=== PATIENT | male | born 1935 | race Caucasian/White ===

== ENCOUNTER 2017-09-12 03:01 | Emergency (ER) | payer OTHER ==
[~2017-09-12] VITALS: Ht 167.6 cm; Wt 100.7 kg
[~2017-09-12 03:01] MED LIST: ASPEC81 PO; ATOR-22 PO; BCTROWC TD; CEPH500C2 PO; CHOL100027 PO; DOXY40CA PO; LSN/20125 PO; MULT-506 PO; PRED10TA PO; RANI150T85 PO; RIFA550T2 PO; TAMS0.4C38 PO; [UNRECOGNIZED DRUG - CODE] TD
[2017-09-12 03:03] VITALS: Ht 167.6 cm; Wt 100.7 kg
[2017-09-12] MEDS ORDERED: BENZONATATE 100MG CAP PO ONE (03:30)
[2017-09-12 03:50] LABS: BASO % 0.3 %; BASO ABS # 0.02 K/uL (0-0.2); EOS ABS # 0.06 K/uL (0-0.5); HEMATOCRIT 41.7 % (42-52); HEMOGLOBIN 14.7 g/dL (14.0-18.0); IG# 0.01 K/uL (0.00-0.02); LYMPH ABS # 0.55 K/uL (1.2-3.4); MEAN CELL VOLUME 92.5 fL (80-100); MEAN CORPUSCULAR HEMOGLOBIN 32.6 pg (25-34); MEAN CORPUSCULAR HGB CONC 35.3 g/dl (32-36); MEAN PLATELET VOLUME 9.5 fL (7.4-10.4); MONO % 13.9 %; MONO ABS # 0.85 K/uL (0.11-0.59); NEUT % 75.6 %; NEUT ABS # 4.64 K/uL (1.4-6.5); PLATELET COUNT 145 K/uL (130-400); RED CELL DISTRIBUTION WIDTH SD 43.5 fL (36.4-46.3); WHITE BLOOD COUNT 6.13 K/uL (4.8-10.8)
[2017-09-12 04:02] LABS: INR 1.2 (0.9-1.1)
[2017-09-12 04:08] LABS: ALBUMIN 3.8 gm/dl (3.4-5.0); ALT/SGPT 26 U/L (12-78); AST/SGOT 17 U/L (15-37); BLOOD UREA NITROGEN 11 mg/dl (7-18); CALCIUM 8.7 mg/dl (8.5-10.1); CARBON DIOXIDE 27 mmol/L (21-32); CREATININE 1.26 mg/dl (0.60-1.40); GLUCOSE 103 mg/dl (70-99); POTASSIUM 3.7 mmol/L (3.5-5.1); SODIUM 135 mmol/L (136-145)
[2017-09-12 04:08] LABS: INFLUENZA B ANTIGEN Neg for Influ B (NEG)
[2017-09-12] MEDS ORDERED: ASPI81TA28 PO (04:12)
[2017-09-12 04:13] LABS: ALKALINE PHOSPHATASE 56 U/L (45-117); TOTAL PROTEIN 6.8 gm/dl (6.4-8.2)
[2017-09-12] MEDS ORDERED: DICY10CA12 PO (04:15)
[2017-09-12] MEDS ORDERED: MAGNESIUM SULFATE 1GM / D5W 1 GM BAG IV STA (04:16)
[2017-09-12] MEDS ORDERED: BCTROWC EXT (04:17)
--- NOTE | 2017-09-12 04:18 | EMERGENCY ROOM VISIT NOTE ---
History Report prepared by Abigail: Noemi Martinez Under the Supervision of: Dr. Lisa Sandhu D.O. First contact with patient: 03:02 Chief Complaint: ILLNESS Stated Complaint: SORETHROAT, HEADACHE, FEVER History of Present Illness The patient is an 82 year old male who presents to the Emergency Room with complaints of a worsening illness starting this morning. The patient states that he had seen his PCP in early July for an annual check up and was told he wasn't needed to be seen for a year. He reports that shortly after him and his developed a cold. He states that he cannot get his nose to stop dripping and has troubles with his sleep apnea machine because of it. The patient states that he was started on some medication for it, but it doesn't work. He states Robitussin DM helps some. The patient states that he is on Doxycycline for his rash and states that he was placed on another antibiotic for his worsening cold symptoms by the PA yesterday. He reports that he has had a dry cough and has developed a sore throat from it. He states that the PA heard something in his lungs and started him on Levaquin 750mg. He reports that they did a chest x-ray that has not been read yet. The patient states that his symptoms worsened following taking the medication. He states that he had two episodes of bowel incontinence upon standing up to use the restroom. The patient states that he came to the ED tonight because he cannot sleep due to not being able to breathe with his machine and his cough. His notes that right before she called the ambulance he had a fever of 102 that dropped to 99.5 when ALS arrived. The patient notes that he feels like he can breathe okay when he breathes through his mouth. The patient complains of a sore throat, diarrhea, head ache, and eye pain. The patient denies chest pain, visual changes , abdominal pain, vomiting, hematochezia, leg swelling, and urinary symptoms. The patient denies ever having Bronchitis or Pneumonia. The patient notes he did get a flu shot this year. The patient denies being around others who are sick, a pulmonary history, and cardiac history. Patient is a poor and very difficult historian. Source of History: patient Onset: this morning Position: other (global) Quality: other (illness) Timing: worsening Associated Symptoms: + fevers, + headache, + sorethroat, + cough, + diarrhea , No chest pain, No vomiting, No abdominal pain, No hematochezia, No urinary symptoms Note: The patient complains of rhinorrhea, bowel incontinence, and eye pain. The patient denies visual changes and leg swelling. Review of Systems See HPI for pertinent positives & negatives. A total of 10 systems reviewed and were otherwise negative. Past Medical & Surgical Medical Problems: (1) Diverticulitis Surgical Problems: (1) History of appendectomy (2) S/P colon resection Family History No pertinent family history Social History Smoking Status: Never Smoker Alcohol Use: occasionally Marital Status: Housing Status: lives with significant other Occupation Status: retired Current/Historical Medications Scheduled Aspirin (Aspirin Ec), 81 MG PO DAILY Atorvastatin (Lipitor), 20 MG PO DAILY Benzonatate (Tessalon Perles), 100 MG PO Q8 Cholecalciferol (Vitamin D 1000 Unit), 1,000 INTER.UNIT PO MWF Doxycycline (Rosacea) (Oracea), 20 MG PO BID Hctz/Lisinopril (Zestoretic 20MG/12.5MG), 1 TAB PO DAILY Hydrocortisone (Hydrocortisone), 1 APPLN TOP BID Multiple Vitamins W/ Minerals (Multivitamin Men 50+), 1 TAB PO DAILY Mupirocin (Bactroban 2% Oint), 1 APPLN EXT BID Ranitidine (Zantac), 150 MG PO BID Sulfacetamide Sodium (Acne) (Klaron), 1 APPLN TOP DAILY Tamsulosin Hcl (Flomax), 0.4 MG PO DAILY Scheduled PRN Dicyclomine Hcl (Dicyclomine Hcl), 1 CAP PO QID PRN for abd cramping/pain Ipratropium Carpio (Nasal) (Ipratropium Carpio), 2 SPRY SABAS QID PRN for rhinitis Allergies Coded Allergies: No Known Allergies (Verified , 09/12/17) Physical Exam Vital Signs Date Time Temp Pulse Resp B/P (MAP) Pulse Ox O2 Delivery O2 Flow Rate FiO2 09/12/17 06:11 37.8 65 16 142/73 98 Room Air 09/12/17 05:16 66 16 130/63 96 Room Air 09/12/17 04:00 65 20 134/70 94 09/12/17 03:38 69 09/12/17 03:03 37.8 83 16 156/85 97 Room Air Physical Exam GENERAL: alert, well appearing, well nourished, no distress, non-toxic EYE EXAM: normal conjunctiva, PERRL and EOM's grossly intact OROPHARYNX: no exudate, no erythema, lips, buccal mucosa, and tongue normal and mucous membranes are moist NECK: supple, no nuchal rigidity, no adenopathy, non-tender LUNGS: Clear to auscultation. Normal chest wall mechanics. No wheezes, rhonchi, or rales. HEART: no murmurs, S1 normal and S2 normal ABDOMEN: abdomen soft, non-tender, normo-active bowel sounds, no masses, no rebound or guarding. BACK: Back is symmetrical on inspection and there is no deformity, no midline tenderness, no CVA tenderness. SKIN: no rashes and no bruising UPPER EXTREMITIES: upper extremities are grossly normal. LOWER EXTREMITIES: No pitting edema. NEURO EXAM: Normal sensorium, cranial nerves II-XII grossly intact, normal speech, no gross weakness of arms, no gross weakness of legs. Medical Decision & Procedures ER Provider Diagnostic Interpretation: CHEST X-RAY: There was no formal radiology report on the x-ray outside of the ED. I interpreted the results of the x-ray. No cardiomegaly. No effusions. No consolidation. No wide mediastinum. No pulmonary edema. CHEST X-RAY: The results were interpreted by me. Cardiomegaly. No effusions. No wide mediastinum. No focal consolidation. No overt pulmonary edema. Laboratory Results 09/12/17 03:31 Red Blood Count 4.51, Mean Corpuscular Volume 92.5, Mean Corpuscular Hemoglobin 32.6, Mean Corpuscular Hemoglobin Concent 35.3, Mean Platelet Volume 9.5, Neutrophils (%) (Auto) 75.6, Lymphocytes (%) (Auto) 9.0, Monocytes (%) (Auto) 13.9, Eosinophils (%) (Auto) 1.0, Basophils (%) (Auto) 0.3, Neutrophils # (Auto ) 4.64, Lymphocytes # (Auto) 0.55, Monocytes # (Auto) 0.85, Eosinophils # (Auto ) 0.06, Basophils # (Auto) 0.02 09/12/17 03:31 Test 09/12/17 03:31 09/12/17 03:35 09/12/17 04:45 White Blood Count 6.13 K/uL (4.8-10.8) Red Blood Count 4.51 M/uL (4.7-6.1) Hemoglobin 14.7 g/dL (14.0-18.0) Hematocrit 41.7 % (42-52) Mean Corpuscular Volume 92.5 fL (80-100) Mean Corpuscular Hemoglobin 32.6 pg (25-34) Mean Corpuscular Hemoglobin Concent 35.3 g/dl (32-36) Platelet Count 145 K/uL (130-400) Mean Platelet Volume 9.5 fL (7.4-10.4) Neutrophils (%) (Auto) 75.6 % Lymphocytes (%) (Auto) 9.0 % Monocytes (%) (Auto) 13.9 % Eosinophils (%) (Auto) 1.0 % Basophils (%) (Auto) 0.3 % Neutrophils # (Auto) 4.64 K/uL (1.4-6.5) Lymphocytes # (Auto) 0.55 K/uL (1.2-3.4) Monocytes # (Auto) 0.85 K/uL (0.11-0.59) Eosinophils # (Auto) 0.06 K/uL (0-0.5) Basophils # (Auto) 0.02 K/uL (0-0.2) RDW Standard Deviation 43.5 fL (36.4-46.3) RDW Coefficient of Variation 13.0 % (11.5-14.5) Immature Granulocyte % (Auto) 0.2 % Immature Granulocyte # (Auto) 0.01 K/uL (0.00-0.02) Prothrombin Time 12.3 SECONDS (9.0-12.0) Prothromb Time International Ratio 1.2 (0.9-1.1) Anion Gap 7.0 mmol/L (3-11) Est Creatinine Clear Calc Drug Dose 51.1 ml/min Estimated GFR () 61.6 Estimated GFR (Non- 53.1 BUN/Creatinine Ratio 8.8 (10-20) Calcium Level 8.7 mg/dl (8.5-10.1) Magnesium Level 1.6 mg/dl (1.8-2.4) Total Bilirubin 1.1 mg/dl (0.2-1) Aspartate Amino Transf (AST/SGOT) 17 U/L (15-37) Alanine Aminotransferase (ALT/SGPT) 26 U/L (12-78) Alkaline Phosphatase 56 U/L (45-117) Troponin I < 0.015 ng/ml (0-0.045) Pro-B-Type Natriuretic Peptide 150 pg/ml (0-1800) Total Protein 6.8 gm/dl (6.4-8.2) Albumin 3.8 gm/dl (3.4-5.0) Globulin 3.0 gm/dl (2.5-4.0) Albumin/Globulin Ratio 1.3 (0.9-2) Influenza Type A Antigen POS for Influ A (NEG) Influenza Type B Antigen Neg for Influ B (NEG) Urine Color YELLOW Urine Appearance CLEAR (CLEAR) Urine pH 5.5 (4.5-7.5) Urine Specific [place] 1.013 (1.000-1.030) Urine Protein NEG (NEG) Urine Glucose (UA) NEG (NEG) Urine Ketones NEG (NEG) Urine Occult Blood 1+ (NEG) Urine Nitrite NEG (NEG) Urine Bilirubin NEG (NEG) Urine Urobilinogen NEG (NEG) Urine Leukocyte Esterase NEG (NEG) Urine WBC (Auto) 0 /hpf (0-5) Urine RBC (Auto) 0-4 /hpf (0-4) Urine Hyaline Casts (Auto) 1-5 /lpf (0-5) Urine Epithelial Cells (Auto) 0-5 /lpf (0-5) Urine Bacteria (Auto) NEG (NEG) Laboratory results per my review. Medications Administered Medications (Trade) Dose Ordered Sig/Latoya Route Start Time Stop Time Status Last Admin Dose Admin Benzonatate (Tessalon Perles Cap) 100 mg NOW ONCE PO 09/12/17 03:30 09/12/17 03:31 DC 09/12/17 03:45 100 MG Magnesium Sulfate (Magnesium Sulfate) 1 gm NOW STAT IV 09/12/17 04:16 09/12/17 04:17 DC 09/12/17 04:32 1 GM ECG Per My Interpretation Indication: other (cough) Rate (beats per minute): 69 Rhythm: sinus rhythm Findings: no acute ischemic change, no ectopy, other (normal axis, normal intervals) ED Course 0311: The patient was evaluated in room A9B. A complete history and physical exam was performed. 0330: Ordered Benzonatate 100 mg PO. 0334: I updated the patient on his x-ray results that I read since there was no formal read. 0416: Ordered Magnesium Sulfate 1 gm IV. 0548: Upon reevaluation, the patient is feeling better. He is steady on his feet and not lightheaded. He and his are comfortable with him going home. I discussed the findings and the treatment plan with the patient. He verbalizes agreement and understanding. The patient was discharged home. Medical Decision Differential diagnosis: Etiologies such as viral syndrome, otitis, pharyngitis, pneumonia, influenza, meningitis, urinary tract infection, sepsis, bacteremia, as well as others were entertained. Patient well-appearing here, stable vital signs throughout, nontoxic appearance. Patient's labs reassuring. Outpatient chest x-ray performed yesterday at time they saw provider and had antibiotics initiated had not yet been read by radiology but on my read was negative for any infiltrate or effusion. Repeat chest x-ray done here as a precaution given fever earlier tonight, also read as negative. Urine otherwise negative, patient with no other GI or symptoms, abdominal exam soft and nontender. Given positive flow and lack of other specific complaints or physical exam findings, I feel this likely explains but the fever as well as the increased cough and rhinorrhea. Patient states cough is improved following administration of Tessalon Perles. Patient never had any hypoxia or increased work of breathing. I do not suspect the cough and fever are related to an occult pneumonia, infectious effusion, pericarditis/myocarditis, bacteremia/sepsis, deep space infection, meningitis/encephalitis, or deep space infection. Patient monitored here for several hours as a precaution, magnesium repleted as well and this was discussed with patient and family. Advised repeat check by patient's family doctor. Discussed cessation of antibiotic that was started yesterday given likely viral etiology of cough and fever, as well as risks associated with that antibiotic in an elderly patient with significant comorbidities. Patient with no prior history of asthma or COPD, no other pulmonary pathology. Patient and family verbalized understanding of all results and discussion a bedside, all questions were answered at bedside, patient was tolerating p.o. and ambulating with a steady gait at time of discharge. Patient well-appearing at discharge and agreeable with plan. Medication Reconcilliation Current Medication List: was personally reviewed by me Blood Pressure Screening Patient's blood pressure: Elevated blood pressure Blood pressure disposition: Referred to PCP Impression Primary Impression: Influenza A Additional Impressions: Cough Rhinorrhea Scribe Attestation The scribe's documentation has been prepared under my direction and personally reviewed by me in its entirety. I confirm that the note above accurately reflects all work, treatment, procedures, and medical decision making performed by me. Departure Information Dispostion Home / Self-Care Prescriptions Benzonatate (Tessalon Perles) 100 Mg Cap 100 MG PO Q8 for Cough, #30 CAP Prov: Lisa Sandhu, DO 09/12/17 Referrals Garth Schulz M.D. (PCP) Forms HOME CARE DOCUMENTATION FORM, IMPORTANT VISIT INFORMATION, WORK / SCHOOL INSTRUCTIONS Patient Instructions My [facility] Additional Instructions Please stop taking the levofloxacin. Please drink plenty of water. You may use the tessalon perles as needed. Please call and follow-up with your family doctor to recheck your condition. Please use tylenol or ibuprofen as needed for fevers. Please avoid any strenuous activity or heavy lifting. If you have any worsening cough, notice blood in your sputum, develop diarrhea, persistent fevers, trouble breathing, chest pain, or you have any other new concerns, please return to the emergency room. Problem Qualifiers
[2017-09-12] MEDS ORDERED: MULT-1056 PO (04:22)
[2017-09-12] MEDS ORDERED: IPRA0.06 NAE (04:24)
[2017-09-12] MEDS ORDERED: HYDCR25 TOP (04:25)
[2017-09-12] MEDS ORDERED: [UNRECOGNIZED DRUG - CODE] TOP (04:26)
[2017-09-12] MEDS ORDERED: BENZ100C84 PO (06:00)
[2017-09-12 06:11] VITALS: BP 142/73; PULSE 65; TEMP 37.8; O2SAT 98
--- NOTE | 2017-09-12 06:59 | DIAGNOSTIC IMAGING REPORT ---
CHEST 2 VIEWS ROUTINE CLINICAL HISTORY: cough, congestion, fever COMPARISON STUDY: No previous studies for comparison. FINDINGS: The heart is mildly enlarged. There is no failure. There is no focal pulmonary consolidation. There are no pleural effusions.[ IMPRESSION: No active disease in the chest. Electronically signed by: Fernando Edwards M.D. 09/12/2017 6:58 AM Dictated Date/Time: 09/12/2017 6:58 AM
== END 2017-09-12 06:11 | disposition home or self-care (01) ==
LOC: C.EDA 03:01
DX: J10.1 Influenza due to other identified influenza virus with other respiratory manifestations (principal); R05 Cough; J34.89 Other specified disorders of nose and nasal sinuses; K57.92 Diverticulitis of intestine, part unspecified, without perforation or abscess without bleeding; Z79.82 Long term (current) use of aspirin; Z79.899 Other long term (current) drug therapy

== ENCOUNTER 2020-11-06 12:31 | Observation (INO) ==
--- NOTE | 2020-11-06 13:39 | Emergency Department Note ---
Impression & Plan Constipation ED Provider Note INFORMANT: Patient ED PROVIDER(S): Rafy Slade MD CHIEF COMPLAINT: Constipation PLAN: Disposition: Admitted Condition: Good Outpatient prescription management: none Referral: None MEDICAL DECISION MAKING: Patient presented emergency room complaining of constipation. Rectal examination did not reveal any significant fecal impaction. He underwent CT imaging due to complaints of the pain and concerns about other pathology. He was found to have significant urinary retention and hydronephrosis. He was also noted to have significant amount of stool in the colon. He had a Lemos catheter placed. Blood work was obtained. He also had a soapsuds enema. The patient had almost 2000 L of urine. His urinalysis was negative. His renal function and chemistries were unremarkable. The patient was reassessed and was feeling better. His personal care facility was contacted by case management. Myself and nursing had concerns about the patient's ability to manage his catheter and his current issue. The personal care facility felt that he could not be cared for there given the situation. Case management recommended inpatient admission and further management. Consultation was placed with Dr. Snell. The patient was evaluated in the ER for further management. Triage Nursing notes reviewed and agree them. Vital Signs: reviewed and remarkable for no significant abnormalities Differential diagnosis: Functional constipation, impaction, obstruction, volvulus, metabolic abnormality, infection, neurologic, as well as other pathologies. Diagnostics interpreted by me: ECG: none Cardiac Monitoring: None Imaging studies: CT scan of the abdomen pelvis reveals moderate stool in the colon. Enlarged prostate, urinary retention and hydronephrosis. I refer you to the EMR for further details. HPI: The patient is a 85 year old male who presents to the Emergency Room with complaints of constipation. This started a week ago and is persisting. The patient also notes the following associated symptoms, lower abdominal fullness. The patient has tried a stool softener for relieving factors. Current pain is rated as 2/10. Pt denies LOC, headache, fevers, chills, diaphoresis, visual changes, neck pain, chest pain, breathing difficulties, nausea, vomiting, back pain, melena, hematochezia, urinary symptoms, numbness, weakness, lymphadenopathy, rash, or other complaints. ROS: See above HPI for pertinent positives & negatives. A total of 10 systems reviewed and were otherwise negative. PAST MEDICAL HISTORY:See Below , dementia PAST SURGICAL HISTORY:See Below,colon resection FAMILY HISTORY:See Below SOCIAL HISTORY:See Below, retired HOME MEDICATIONS:See Below ALLERGIES:See Below VITALS:See Below PHYSICAL EXAMINATION: GENERAL: Awake, alert, well-appearing, in no distress HENT: Normocephalic, atraumatic. Oropharynx unremarkable. EYES: Normal conjunctiva. Sclera non-icteric. NECK: Inspection normal. Non-tender. Supple. No nuchal rigidity. FROM. No masses. RESPIRATORY: Clear to auscultation. No wheezes. No rales. Normal respiratory effort. CARDIAC: Normal rate. Normal rhythm. No murmurs. No rubs. Extremities warm and well perfused. Pulses equal. No JVD. GI: Soft, non-distended. Minor LLQ tenderness to palpation. No rebound or guarding. No masses. RECTAL: Brown stool. No impaction noted to 5cm. MUSCULOSKELETAL: Atraumatic. Chest examination reveals no tenderness. The back is symmetrical on inspection without obvious abnormality. There is no CVA tenderness to palpation. No joint edema. LOWER EXTREMITIES: Calves are equal size bilaterally and non-tender. +1 edema. No discoloration. NEURO: Normal sensorium. No sensory or motor deficits noted. SKIN: No rash or jaundice noted. Rafy Slade MD Past Med/Surg History Medical History Diverticulitis Surgical History History of appendectomy S/P colon resection Social History Smoking Status: Former smoker Feels Safe at Home: Yes Allergies Allergies Allergy/AdvReac Type Severity Reaction Status Date / Time No Known Allergies Allergy Mild Verified 11/06/20 14:33 Home Meds Home Medications Medication Instructions Recorded Confirmed atorvastatin 20 mg PO QAM 11/27/19 11/06/20 lisinopril 20 mg PO QAM 11/27/19 11/06/20 tamsulosin 0.4 mg PO QAM 11/27/19 11/06/20 Triamcinolone 1%/Lubriderm 1 applic TOPICAL BID 10/20/20 11/06/20 acetaminophen 650 mg PO Q6 PRN MDD 3 10/20/20 11/06/20 cholecalciferol (vitamin D3) 25 mcg PO 3XWK 10/20/20 11/06/20 [Vitamin D3] cyanocobalamin (vitamin B-12) 1,000 mcg PO QAM 10/20/20 11/06/20 [Vitamin B-12] doxycycline hyclate 100 mg PO QAM 10/20/20 11/06/20 furosemide 40 mg PO QAM 10/20/20 11/06/20 lorazepam 0.5 mg PO DAILY PRN 10/20/20 11/06/20 quetiapine 50 mg PO BID PRN 10/20/20 11/06/20 vitamin A 10,000 unit PO QAM 10/20/20 11/06/20 vitamin A and D 1 applic TOPICAL BID PRN 10/20/20 11/06/20 zinc sulfate 220 mg PO QAM 10/20/20 11/06/20 Results & Data (ED) Vital Signs Vital Signs - 24 hr 11/06/20 12:44 11/06/20 14:50 11/06/20 17:41 Temperature 36.8 C Temperature Source Oral Oral Pulse Rate 68 Pulse Rate [Right Finger] 70 62 Pulse Rhythm Regular Pulse Rhythm [Right Finger] Regular Regular Pulse Strength Normal Pulse Strength [Right Finger] Normal Normal Respiratory Rate 18 20 18 Respiratory Effort / Characteristics Non-Labored Spontaneous Non-Labored Spontaneous Non-Labored Spontaneous Respiratory Depth Normal Normal Normal Respiratory Pattern Regular Regular Regular Blood Pressure 132/78 Blood Pressure [Right Arm] 135/73 141/76 H Blood Pressure Mean 96 Blood Pressure Mean [Right Arm] 93 97 Blood Pressure Position Sitting Pulse Oximetry 97 99 98 Oxygen Delivery Method Room Air Room Air Room Air Sepsis Recent Fever Within 48 Hours No Sepsis New/Unexplained Change in Mental Status N/A Sepsis Action Taken by Nursing No Action Required Laboratory Data Result diagrams: 11/06/20 16:13 11/06/20 16:13 Lab Results 11/06/20 11/06/20 11/06/20 Range/Units 16:12 16:13 16:13 WBC 6.98 (4.8-10.8) K/uL RBC 4.47 L (4.7-6.1) M/uL Hgb 14.5 (14.0-18.0) g/dL Hct 42.2 (42-52) % MCV 94.4 (80-100) fL MCH 32.4 (25-34) pg MCHC 34.4 (32-36) g/dL RDW Std Deviation 45.8 (36.4-46.3) fL RDW Coeff of Mohit 13.2 (11.5-14.5) % Plt Count 169 (130-400) K/uL MPV 10.9 H (7.4-10.4) fL Immature Gran % (Auto) 0.1 % Neut % (Auto) 66.7 % Lymph % (Auto) 24.8 % [place] % (Auto) 6.7 % Eos % (Auto) 1.4 % Baso % (Auto) 0.3 % Neut # (Auto) 4.65 (1.4-6.5) K/uL Lymph # (Auto) 1.73 (1.2-3.4) K/uL [place] # (Auto) 0.47 (0.11-0.59) K/uL Eos # (Auto) 0.10 (0-0.5) K/uL Baso # (Auto) 0.02 (0-0.2) K/uL Immature Gran # (Auto) 0.01 (0.00-0.02) K/uL Sodium 139 (136-145) mmol/L Potassium 4.2 (3.5-5.1) mmol/L Chloride 105 (98-107) mmol/L Carbon Dioxide 32 (21-32) mmol/L Anion Gap 2.0 L (3-11) BUN 21 H (7-18) mg/dl Creatinine 0.90 (0.6-1.4) mg/dl Est Cr Clr Drug Dosing 57.9 ml/min Est GFR ( Amer) 90.6 Est GFR (Non-Af Amer) 78.2 BUN/Creatinine Ratio 23.4 H (10-20) Glucose 95 (70-99) mg/dl Calcium 9.2 (8.5-10.1) mg/dl Total Bilirubin 0.7 (0.2-1) mg/dl AST 36 (15-37) U/L ALT 49 (12-78) U/L Alkaline Phosphatase 79 (45-117) U/L Total Protein 7.4 (6.4-8.2) gm/dl Albumin 4.3 (3.4-5.0) gm/dl Globulin 3.1 (2.5-4.0) gm/dl Albumin/Globulin Ratio 1.4 (0.9-2) Specimen Hemolysis Urine Color Yellow Urine Appearance Clear (Clear) Urine pH 5.5 (4.5-7.5) Ur Specific [place] 1.008 (1.000-1.030) Urine Protein Negative (Negative) Urine Glucose (UA) Negative (Negative) Urine Ketones Negative (Negative) Urine Blood Negative (Negative) Urine Nitrite Negative (Negative) Urine Bilirubin Negative (Negative) Urine Urobilinogen Negative (Negative) Ur Leukocyte Esterase Negative (Negative) COVID-19 Eval Order 11/06/20 Range/Units 17:49 WBC (4.8-10.8) K/uL RBC (4.7-6.1) M/uL Hgb (14.0-18.0) g/dL Hct (42-52) % MCV (80-100) fL MCH (25-34) pg MCHC (32-36) g/dL RDW Std Deviation (36.4-46.3) fL RDW Coeff of Mohit (11.5-14.5) % Plt Count (130-400) K/uL MPV (7.4-10.4) fL Immature Gran % (Auto) % Neut % (Auto) % Lymph % (Auto) % [place] % (Auto) % Eos % (Auto) % Baso % (Auto) % Neut # (Auto) (1.4-6.5) K/uL Lymph # (Auto) (1.2-3.4) K/uL [place] # (Auto) (0.11-0.59) K/uL Eos # (Auto) (0-0.5) K/uL Baso # (Auto) (0-0.2) K/uL Immature Gran # (Auto) (0.00-0.02) K/uL Sodium (136-145) mmol/L Potassium (3.5-5.1) mmol/L Chloride (98-107) mmol/L Carbon Dioxide (21-32) mmol/L Anion Gap (3-11) BUN (7-18) mg/dl Creatinine (0.6-1.4) mg/dl Est Cr Clr Drug Dosing ml/min Est GFR ( Amer) Est GFR (Non-Af Amer) BUN/Creatinine Ratio (10-20) Glucose (70-99) mg/dl Calcium (8.5-10.1) mg/dl Total Bilirubin (0.2-1) mg/dl AST (15-37) U/L ALT (12-78) U/L Alkaline Phosphatase (45-117) U/L Total Protein (6.4-8.2) gm/dl Albumin (3.4-5.0) gm/dl Globulin (2.5-4.0) gm/dl Albumin/Globulin Ratio (0.9-2) Specimen Hemolysis Urine Color Urine Appearance (Clear) Urine pH (4.5-7.5) Ur Specific [place] (1.000-1.030) Urine Protein (Negative) Urine Glucose (UA) (Negative) Urine Ketones (Negative) Urine Blood (Negative) Urine Nitrite (Negative) Urine Bilirubin (Negative) Urine Urobilinogen (Negative) Ur Leukocyte Esterase (Negative) COVID-19 Eval Order CovFluRsv at [facility] Imaging Data Radiologist's Impression: Abdomen/Pelvis CT 11/06/20 13:[address] WITHOUT CONTRAST CT DOSE: 955.81 mGycm HISTORY: constipation, lower abdominal pain. TECHNIQUE: Multiaxial CT images of the abdomen and pelvis were performed without contrast. A dose lowering technique was utilized adhering to the principles of ALARA. COMPARISON STUDY: Abdomen and pelvis CT 09/12/2007. FINDINGS: Mild chronic interstitial thickening at the lung bases. No pneumoperitoneum. No pneumatosis. No suspicious lytic are blastic osseous lesions. Subtle nodular contour to the liver suggestive of mild cirrhosis. Prior cholecystectomy. The unenhanced spleen, adrenal glands, and pancreas are unremarkable. No retroperitoneal lymphadenopathy. Normal caliber abdominal aorta. The prostate gland is enlarged measuring 6.2 cm in diameter. There are small fat-containing bilateral inguinal hernias. Moderate well-formed stool seen within the colon. Evidence for prior sigmoid anastomosis. Suboptimal evaluation for bowel pathology due to the lack of intravenous and oral contrast. However, there is no definite bowel wall thickening or obstruction. Colonic diverticulosis. No evidence for acute diverticulitis. There is a 3 mm stone within the lower pole the right kidney. No left renal calculi. No ureteral calculi. Moderate to severe bladder distention. There is also mild bilateral hydronephrosis. This is likely due to the suspected bladder outlet obstruction. The bladder outlet obstruction is likely due to the enlarged prostate gland. IMPRESSION: 1. Moderate to severe bladder distention. There is also mild bilateral hydronephrosis. This is likely secondary to the enlarged prostate gland resulting in bladder outlet obstruction. Lemos catheterization recommended for decompression. 2. No bowel wall thickening or obstruction. 3. Right-sided nephrolithiasis. 4. Prior cholecystectomy. 5. Mild cirrhosis. 6. Colonic diverticulosis. No evidence for acute diverticulitis. ACT 112: Negative or not required by law. Electronically signed by: Cecil Zhao M.D. 11/06/2020 2:37 PM Discharge Plan Visit Data Chief Complaint: Constipation Stated Complaint: Constipation ED Provider: Rafy Slade Discharge Problem: Constipation Forms Stand Alone Forms: [place] [facility] Prescriptions Prescriptions: No Action atorvastatin 20 mg tablet 20 mg PO QAM RF: 0 lisinopril 20 mg tablet 20 mg PO QAM RF: 0 tamsulosin 0.4 mg capsule 0.4 mg PO QAM RF: 0 furosemide 40 mg tablet 40 mg PO QAM RF: 0 doxycycline hyclate 100 mg capsule 100 mg PO QAM RF: 0 cyanocobalamin (vitamin B-12) [Vitamin B-12] 1,000 mcg Tablet 1,000 mcg PO QAM RF: 0 vitamin A 10,000 unit Capsule 10,000 unit PO QAM RF: 0 cholecalciferol (vitamin D3) [Vitamin D3] 25 mcg (1,000 unit) Capsule 25 mcg PO 3XWK RF: 0 acetaminophen 325 mg Tablet 650 mg PO Q6 MDD 3 PRN (Reason: Fever Or Pain) RF: 0 lorazepam 0.5 mg tablet 0.5 mg PO DAILY PRN (Reason: Anxiety) RF: 0 zinc sulfate 220 mg Capsule 220 mg PO QAM RF: 0 quetiapine 50 mg Tablet 50 mg PO BID PRN (Reason: Anxiety) RF: 0 vitamin A and D Ointment 1 applic TOPICAL BID PRN (Reason: ulcer) RF: 0 Triamcinolone 1%/Lubriderm 1 applic topical BID RF: 0
--- NOTE | 2020-11-06 14:39 | CT Scan Report ---
ABDOMEN AND PELVIS CT WITHOUT CONTRAST CT DOSE: 955.81 mGycm HISTORY: constipation, lower abdominal pain. TECHNIQUE: Multiaxial CT images of the abdomen and pelvis were performed without contrast. A dose lo wering technique was utilized adhering to the principles of ALARA. COMPARISON STUDY: Abdomen and pelvis CT 09/12/2007. FINDINGS: Mild chronic interstitial thickening at the lung bases. No pneumoperitoneum. No pneumatosis . No suspicious lytic are blastic osseous lesions. Subtle nodular contour to the liver suggestive of mild cirrhosis. Prior cholecystectomy. The unenhanced spleen, adrenal glands, and pancreas are unrema rkable. No retroperitoneal lymphadenopathy. Normal caliber abdominal aorta. The prostate gland is enl arged measuring 6.2 cm in diameter. There are small fat-containing bilateral inguinal hernias. Modera te well-formed stool seen within the colon. Evidence for prior sigmoid anastomosis. Suboptimal evalua tion for bowel pathology due to the lack of intravenous and oral contrast. However, there is no defin ite bowel wall thickening or obstruction. Colonic diverticulosis. No evidence for acute diverticuliti s. There is a 3 mm stone within the lower pole the right kidney. No left renal calculi. No ureteral c alculi. Moderate to severe bladder distention. There is also mild bilateral hydronephrosis. This is l ikely due to the suspected bladder outlet obstruction. The bladder outlet obstruction is likely due t o the enlarged prostate gland. IMPRESSION: 1. Moderate to severe bladder distention. There is also mild bilateral hydronephrosis. This is likely secondary to the enlarged prostate gland resulting in bladder outlet obstruction. Lemos catheterizat ion recommended for decompression. 2. No bowel wall thickening or obstruction. 3. Right-sided nephrolithiasis. 4. Prior cholecystectomy. 5. Mild cirrhosis. 6. Colonic diverticulosis. No evidence for acute diverticulitis. ACT 112: Negative or not required by law. Electronically signed by: Cecil Zaho M.D. 11/06/2020 2:37 PM
[2020-11-06 16:26] LABS: Basophils # (auto) 0.02 K/uL (0-0.2); Basophils % (auto) 0.3 %; Eosinophils % (auto) 1.4 %; Hematocrit (blood only) 42.2 % (42-52); Hemoglobin 14.5 g/dL (14.0-18.0); Immature Granulocytes # (auto) 0.01 K/uL (0.00-0.02); Immature Granulocytes % (auto) 0.1 %; Lymphocytes # (auto) 1.73 K/uL (1.2-3.4); Lymphocytes % (auto) 24.8 %; Mean Corpuscular Hemoglobin 32.4 pg (25-34); Mean Corpuscular Hgb Conc 34.4 g/dL (32-36); Mean Corpuscular Volume 94.4 fL (80-100); Mean Platelet Volume 10.9 fL (7.4-10.4); Monocytes # (auto) 0.47 K/uL (0.11-0.59); Monocytes % (auto) 6.7 %; Neutrophils # (auto) 4.65 K/uL (1.4-6.5); Neutrophils % (auto) 66.7 %; Platelet Count 169 K/uL (130-400); RDW Coefficient of Variation 13.2 % (11.5-14.5); RDW Standard Deviation 45.8 fL (36.4-46.3); Red Blood Count 4.47 M/uL (4.7-6.1); White Blood Count 6.98 K/uL (4.8-10.8)
[2020-11-06 16:29] LABS: Appearance Urine Clear (Clear); Bilirubin Urine Negative (Negative); Blood Urine Negative (Negative); Color Urine Yellow; Glucose Urine UA Negative (Negative); Ketones Urine Negative (Negative); Leukocyte Esterase Urine Negative (Negative); Nitrite Urine Negative (Negative); Protein Urine Negative (Negative); Specific Gravity Urine 1.008 (1.000-1.030); Urobilinogen Urine Negative (Negative); pH Urine 5.5 (4.5-7.5)
[2020-11-06 16:53] LABS: Albumin Globulin Ratio 1.4 (0.9-2); Albumin Level 4.3 gm/dl (3.4-5.0); BUN Creatinine Ratio 23.4 (10-20); Bilirubin,Total 0.7 mg/dl (0.2-1); Calcium 9.2 mg/dl (8.5-10.1); Creatinine Clr Calc Pharmacy 57.9 ml/min; Est GFR (African American) 90.6; Est GFR (Non-African American) 78.2; Globulin 3.1 gm/dl (2.5-4.0); Potassium 4.2 mmol/L (3.5-5.1); Total Protein 7.4 gm/dl (6.4-8.2)
--- NOTE | 2020-11-06 18:15 | History & Physical Report ---
Date of Service November 06, 2020 Assessment & Plan Admission and Anticipated Discharge Date Admission Date: 85 yo m w/ pMHx. of constipation, s/p colon resection, appendectomy, diverticulitis, AV malformation of the colon and dementia presents from a personal half-way with concerns of LBM 5 days prior and abdominal pain - admit for observation to med/surg floor Constipation, chronic, LBM [address] a/p w/ finding of: Moderate well formed stool in colon. No bowel wall thickening or obstruction. Colonic diverticulosis. No evidence for acute diverticulitis. - Miralax 2 doses tonight and TID going forward BPH, chronic, obstructive with rapid dieresis of 1L after Lemos placed abdominal pain and LUTS prior to arrival CT a/p w/ finding of moderate to severe bladder distention, mild bilateral hydronephrosis - continue Lemos catheter - continue Tamsulosin Leg swelling/redness, consistent with venous stasis Hx. of bilateral lymphadema - FAITH's and SCD's Mild cirrhosis on CT a/p nl LFT's - may require further outpatient evaluation Dementia, unclear baseline CT head 06/28/20: No acute intracranial hemorrhage, midline shift, intracranial mass, hydrocephalus, territorial ischemia or abnormal extra-axial collection. Age-related involutional changes. Coarse calcifications of the falx cerebri. Patchy white matter hypodensities suggest chronic microvascular ischemic disease. - Ativan and Quetiapine available for agitation HTN - continue Lisinopril, and Furosemide Dyslipidemia - continue Atorvastatin Code: full Diet: regular DVT: SCD's History of Present Illness Chief Complaint: abdominal pain Primary Care Provider: [facility] Timoteo Ivory is here for abdominal pain. He is coming from a personal half-way "[facility]". His last bowel movement was 5 days prior and was complaining of abdominal pain. He pointed to his suprapubic area when describing the pain along with some discomfort in his left lower quadrant. He also noted "spurting" of urine. He has a history of dementia and was not able to offer much in regard to a history or symptoms. Patient brought up son named Amador although there is no contact information available Called son Garth who was in the chart and lives in [place], he was not available but his was, although she was unclear on the patient's medical conditions or any recent changes, expecting a call from Garth morataya Called [facility] multiple times with no answer Note from [facility] 05/05/2020 medical conditions include: BPH w/ obstruction, dyslipidemia, AV malformation of the colon, HTN w/ CKD III, GERD, Lymphedema bilateral extremity, senile and vascular dementia ED course: CT scan Lemos catheter placed Allergies Allergy/AdvReac Type Severity Reaction Status Date / Time No Known Allergies Allergy Mild Verified 11/06/20 14:33 Home Medications Medication Instructions Recorded Confirmed Type atorvastatin 20 mg PO QAM 11/27/19 11/06/20 History lisinopril 20 mg PO QAM 11/27/19 11/06/20 History tamsulosin 0.4 mg PO QAM 11/27/19 11/06/20 History Triamcinolone 1%/Lubriderm 1 applic TOPICAL BID 10/20/20 11/06/20 History acetaminophen 650 mg PO Q6 PRN MDD 3 10/20/20 11/06/20 History cholecalciferol (vitamin D3) 25 mcg PO 3XWK 10/20/20 11/06/20 History [Vitamin D3] cyanocobalamin (vitamin B-12) 1,000 mcg PO QAM 10/20/20 11/06/20 History [Vitamin B-12] doxycycline hyclate 100 mg PO QAM 10/20/20 11/06/20 History furosemide 40 mg PO QAM 10/20/20 11/06/20 History lorazepam 0.5 mg PO DAILY PRN 10/20/20 11/06/20 History quetiapine 50 mg PO BID PRN 10/20/20 11/06/20 History vitamin A 10,000 unit PO QAM 10/20/20 11/06/20 History vitamin A and D 1 applic TOPICAL BID PRN 10/20/20 11/06/20 History zinc sulfate 220 mg PO QAM 10/20/20 11/06/20 History Past Med/Surg History Medical History Diverticulitis Surgical History History of appendectomy S/P colon resection Social History Smoking Status: Former smoker Hx Alcohol Use: No Hx Substance Use: No Preferred Language: Mongolian Communication Ability: Effective Jackspooler Required: No Beliefs That Will Affect Care: None Current Living Situation: Spouse Feels Safe at Home: Yes Safety Concerns: Feels Safe At This Time Review of Systems Review of Systems: Constitutional: denies fevers, chills, nuasea, vomiting, diaphoresis Head: denies trauma Cardiac: denies chest pain Pulm.: denies cough : denies dysuria Physical Exam Constitutional: + well hydrated and cooperative; no acute distress Eyes: PERRL, conjunctivae normal, anicteric sclerae ENMT: external ear and nose normal, oropharynx normal Neck: normal visual inspection Respiratory: normal respiratory effort, lungs clear to auscultation Cardiovascular: Rate/Rhythm: regular rate and regular rhythm Heart Sounds: no murmur Gastrointestinal (Abdomen): normal bowel sounds, soft, nontender, no hepatosplenomegaly Musculoskeletal: no cyanosis or clubbing, extremities motor strength 5/5 Skin: - erythema along with significant swelling of the lower extremity bilaterally L>R. - no ulceration no drainage - swelling does no cross the sock line - no tenderness Neurologic: no focal motor deficits Psychiatric: Orientation: alert; + not oriented x 3 Eye Contact: + fair eye contact Speech: + loud speech Thought Process: + tangential thought process, + flight of ideas and + confabulations Results & Data Results & Data ([facility]) Vital Signs (Past 12 Hours) Vital Signs Temp Pulse Pulse Resp BP BP Pulse Ox 11/06/20 17:41 62 18 141/76 H 98 11/06/20 14:50 70 20 135/73 99 11/06/20 12:44 36.8 C 68 18 132/78 97 CBC Results Results Complete Blood Count Results: RBC 4.47 M/uL (4.7-6.1) L 11/06/20 WBC 6.98 K/uL (4.8-10.8) 11/06/20 Hgb 14.5 g/dL (14.0-18.0) 11/06/20 Hct 42.2 % (42-52) 11/06/20 Plt Count 169 K/uL (130-400) 11/06/20 Chemistry (BMP) Results BMP Results: Sodium 139 mmol/L (136-145) 11/06/20 Potassium 4.2 mmol/L (3.5-5.1) 11/06/20 Chloride 105 mmol/L (98-107) 11/06/20 BUN 21 mg/dl (7-18) H 11/06/20 Creatinine 0.90 mg/dl (0.6-1.4) 11/06/20 Glucose 95 mg/dl (70-99) 11/06/20 Resident Activity Tracking Resident Involvement: Resident Care Provided Care Provided: Adult [facility]
[2020-11-06 18:41] LABS: Influenza A virus by PCR Negative (Neg); Influenza B virus by PCR Negative (Neg); RSV by PCR Negative (Neg); SARS CoV2 RNA(COVID-19) InHosp NEGATIVE (Negative)
[2020-11-06] MEDS ORDERED: POLYETHYLENE (MIRALAX) 17 GM PACK PO STA (21:01)
[2020-11-06] MEDS ORDERED: LUBRIDERM TOP SCH (21:01)
[2020-11-06] MEDS ORDERED: LORazepam 0.5 MG TAB PO PRN (21:01)
[2020-11-06] MEDS ORDERED: VITAMIN A AND D TOP PRN (21:01)
[2020-11-06] MEDS ORDERED: TRIAMCINOLONE TOP SCH (21:01)
[2020-11-06] MEDS ORDERED: ACETAMINOPHEN 325 MG TAB PO PRN ×2 (21:01)
[2020-11-07] MEDS: QUEtiapine FUMARATE 25 MG TABLET PO PRN ×2 (02:26→21:37)
[2020-11-07 06:49] LABS: Basophils # (auto) 0.03 K/uL (0-0.2); Basophils % (auto) 0.3 %; Eosinophils # (auto) 0.11 K/uL (0-0.5); Eosinophils % (auto) 1.2 %; Hematocrit (blood only) 40.5 % (42-52); Hemoglobin 13.7 g/dL (14.0-18.0); Immature Granulocytes # (auto) 0.01 K/uL (0.00-0.02); Immature Granulocytes % (auto) 0.1 %; Lymphocytes # (auto) 1.55 K/uL (1.2-3.4); Lymphocytes % (auto) 17.1 %; Mean Corpuscular Hemoglobin 31.6 pg (25-34); Mean Corpuscular Hgb Conc 33.8 g/dL (32-36); Mean Corpuscular Volume 93.5 fL (80-100); Mean Platelet Volume 10.1 fL (7.4-10.4); Monocytes % (auto) 8.8 %; Neutrophils # (auto) 6.58 K/uL (1.4-6.5); Neutrophils % (auto) 72.5 %; Platelet Count 175 K/uL (130-400); RDW Standard Deviation 45.1 fL (36.4-46.3); Red Blood Count 4.33 M/uL (4.7-6.1); White Blood Count 9.08 K/uL (4.8-10.8)
[2020-11-07 07:06] LABS: Calcium 9.1 mg/dl (8.5-10.1); Est GFR (African American) 95.6; Est GFR (Non-African American) 82.5; Potassium 3.7 mmol/L (3.5-5.1)
[2020-11-07] MEDS: POLYETHYLENE (MIRALAX) 17 GM PACK PO SCH ×2 (09:08→15:22)
[2020-11-07] MEDS: lisinopril 20 MG TAB PO SCH (09:08)
[2020-11-07] MEDS: TAMSULOSIN HCL 0.4 MG CAP PO SCH (09:08)
[2020-11-07] MEDS: ATORVASTATIN 20 MG TAB PO SCH (09:08)
[2020-11-07] MEDS: FUROSEMIDE 40 MG TAB PO SCH (09:08)
--- NOTE | 2020-11-07 15:35 | Hospitalist Progress Note ---
Date of Service November 07, 2020 Assessment & Plan (1) Constipation: Patient had a soapsuds enema and multiple doses of laxatives and now has had a bowel movement. Okay to continue to monitor (2) Urinary retention: I suspect this was the main cause of the patient's abdominal pain, had a large volume diuresis after Crockett catheter inserted. For now, will need to continue catheter. I did discuss with case management, patient will likely need to be discharged with his place, should have outpatient neurology follow-up and voiding trial in their office. Case management is currently working on discharge planning is the patient currently lives in a personal residential and I suspect he will not be able to manage the catheter on his own (3) HTN (hypertension): Continue lisinopril and furosemide (4) Dyslipidemia: Continue atorvastatin Admission and Anticipated Discharge Date Admission Date: November 06, 2020 Subjective Late entry. Patient seen earlier today. He was awake and alert, very talkative and I suspect there may have been a degree of confusion. He did not appear to be in any distress. I did ask about his abdominal pain he tells me that this is resolved. Per nursing, the patient had not had a bowel movement at that time but later had a large volume bowel movement and his laxatives were discontinued. Physical Exam Constitutional: WD/WN, vitals as above Respiratory: normal respiratory effort, lungs clear to auscultation Auscultation: lungs clear to auscultation bilaterally Cardiovascular: RRR, no murmur, no edema Rate/Rhythm: regular rate Gastrointestinal (Abdomen): normal bowel sounds, soft, nontender, no hepatosplenomegaly Inspection/Auscultation: abdomen normal to inspection Genitourinary: crockett, normal yellow urine Results & Data Results & Data ([facility]) Vital Signs (Past 12 Hours) Vital Signs Temp Pulse Resp BP Pulse Ox 11/07/20 14:57 36.7 C 61 16 112/63 96 11/07/20 07:12 36.6 C 61 18 149/78 H 98 PG Care Time/CCT Total # of Minutes Spent Total Time Spent with Patient: Total time spent is greater than 50% in coordination of care (as documented) at patient's floor/unit and/or counseling patient: Coding Level of Care Code 51651 Subseq Hosp Care Lvl 2 Diagnoses Constipation K59.00 Urinary retention R33.9 HTN (hypertension) I10 Dyslipidemia E78.5
[2020-11-08] MEDS: lisinopril 20 MG TAB PO SCH (08:54)
[2020-11-08] MEDS: TAMSULOSIN HCL 0.4 MG CAP PO SCH (08:54)
[2020-11-08] MEDS: ATORVASTATIN 20 MG TAB PO SCH (08:54)
[2020-11-08] MEDS: FUROSEMIDE 40 MG TAB PO SCH (09:36)
--- NOTE | 2020-11-08 10:15 | Discharge Summary ---
Date of Service November 08, 2020 Admission HPI Per Admitting Provider Timoteo Ivory is here for abdominal pain. He is coming from a personal snf "[facility]". His last bowel movement was 5 days prior and was complaining of abdominal pain. He pointed to his suprapubic area when describing the pain along with some discomfort in his left lower quadrant. He also noted "spurting" of urine. He has a history of dementia and was not able to offer much in regard to a history or symptoms. Patient brought up son annamaria English although there is no contact information available Called son Garth who was in the chart and lives in [place], he was not available but his was, although she was unclear on the patient's medical conditions or any recent changes, expecting a call from Garth morataya Called [facility] multiple times with no answer Note from [facility] 05/05/2020 medical conditions include: BPH w/ obstruction, dyslipidemia, AV malformation of the colon, HTN w/ CKD III, GERD, Lymphedema bilateral extremity, senile and vascular dementia ED course: CT scan Lemos catheter placed Admission Exam Per Admitting Provider Constitutional: + well hydrated and cooperative; no acute distress Eyes: PERRL, conjunctivae normal, anicteric sclerae ENMT: external ear and nose normal, oropharynx normal Neck: normal visual inspection Respiratory: normal respiratory effort, lungs clear to auscultation Cardiovascular: Rate/Rhythm: regular rate and regular rhythm Heart Sounds: no murmur Gastrointestinal (Abdomen): normal bowel sounds, soft, nontender, no hepatosplenomegaly Musculoskeletal: no cyanosis or clubbing, extremities motor strength 5/5 Skin: - erythema along with significant swelling of the lower extremity bilaterally L>R. - no ulceration no drainage - swelling does no cross the sock line - no tenderness Neurologic: no focal motor deficits Psychiatric: Orientation: alert; + not oriented x 3 Eye Contact: + fair eye contact Speech: + loud speech Thought Process: + tangential thought process, + flight of ideas and + confabulations Principal Diagnosis 1. Acute urinary retention, likely secondary to BPH 2. Constipation, now resolved 3. Hypertension 4. Dyslipidemia 5. Mild senile dementia Discharge Exam Constitutional WD/WN, vitals as above Respiratory normal respiratory effort, lungs clear to auscultation Auscultation: lungs clear to auscultation bilaterally Cardiovascular RRR, no murmur, no edema Rate/Rhythm: regular rate Gastrointestinal (Abdomen) normal bowel sounds, soft, nontender, no hepatosplenomegaly Inspection/Auscultation: abdomen normal to inspection Genitourinary Lemos in place, draining clear yellow urine Discharge Data Allergies Allergy/AdvReac Type Severity Reaction Status Date / Time No Known Allergies Allergy Mild Verified 11/06/20 14:33 Ordered Studies 11/06/20 13:28 CT abd pelvis wo con Stat Hospital Course (1) Constipation: Patient had a soapsuds enema and multiple doses of laxatives and now has had a bowel movement. Patient's pain was relieved after insertion of the Lemos. He will be placed on Colace p.o.twice daily for bowel health. (2) Urinary retention: Patient initially presented with abdominal pain. CT scan showed very dilated bladder with bilateral hydronephrosis. Lemos was inserted emergency room with large volume diuresis. Patient symptoms seem to resolve after this. Patient's Lemos is remained in place. He does have a history of BPH and is on F chandra with this. Plan will be to continue the Lemos as an outpatient. He should be fitted with a leg bag. Patient will need short-term follow-up with urology after voiding trial in for definitive treatment. Patient may have cognitive issues and will likely need help emptying the Lemos periodically. (3) HTN (hypertension): Continue lisinopril and furosemide (4) Dyslipidemia: Continue atorvastatin Total Time Total Time Spent Total Time Spent (In Minutes): 28 Discharge Plan Discharge Items Patient Disposition: Trans Resident Long-Term Care Reason For Visit: CONSTIPATION Discharge Diagnosis: 1. Acute urinary retention, now with Lemos in place 2. Constipation 3. hypertension 4. Dyslipidemia 5. Possible mild senile dementia Activity: Resume your previous activity Non-emergency contact: Primary Care Provider and Urologist Call non-emergency contact if: you have any medication questions, your symptoms worsen and you have a fever Follow-up/Referrals: Graham, [Primary Care Provider] - (Patient will need outpatient urology evaluation for voiding trial and more definitive treatment for urinary retention.) Diet: Regular Addtl Attending Provider Instructions: None Pending Studies at Discharge: No Stand-Alone Forms: [facility] Skilled Items Patient informed of condition?: Yes DNR: No Discharge Level of Care: Other Communicable Disease: No Discharge Prognosis: Stable Lines: None Urinary Catheter: Yes Medications and DC Order Prescriptions: New docusate sodium [Colace] 100 mg capsule 100 mg PO BID Qty: 30 RF: 0 Continued atorvastatin 20 mg tablet 20 mg PO QAM RF: 0 lisinopril 20 mg tablet 20 mg PO QAM RF: 0 tamsulosin 0.4 mg capsule 0.4 mg PO QAM RF: 0 furosemide 40 mg tablet 40 mg PO QAM RF: 0 cyanocobalamin (vitamin B-12) [Vitamin B-12] 1,000 mcg Tablet 1,000 mcg PO QAM RF: 0 vitamin A 10,000 unit Capsule 10,000 unit PO QAM RF: 0 cholecalciferol (vitamin D3) [Vitamin D3] 25 mcg (1,000 unit) Capsule 25 mcg PO 3XWK RF: 0 acetaminophen 325 mg Tablet 650 mg PO Q6 MDD 3 PRN (Reason: Fever Or Pain) RF: 0 lorazepam 0.5 mg tablet 0.5 mg PO DAILY PRN (Reason: Anxiety) RF: 0 zinc sulfate 220 mg Capsule 220 mg PO QAM RF: 0 quetiapine 50 mg Tablet 50 mg PO BID PRN (Reason: Anxiety) RF: 0 vitamin A and D Ointment 1 applic TOPICAL BID PRN (Reason: ulcer) RF: 0 Triamcinolone 1%/Lubriderm 1 applic topical BID RF: 0 Discontinued doxycycline hyclate 100 mg capsule 100 mg PO QAM RF: 0 Discharge Orders: Discharge Order (Routine); Ordered 11/08/20 Ordered By: Adam Dennis Admission Data Admit Date/Time: 11/06/20 18:26 Attending Provider: Adam Dennis Admit Provider: Demetrio Flores Primary Care Provider: Graham, Other Providers: [facility] Coding Level of Care Code 40129 OBS Care - Discharge Diagnoses Constipation K59.00 Urinary retention R33.9 HTN (hypertension) I10 Dyslipidemia E78.5
== END 2020-11-08 12:10 | disposition home or self-care (01) ==
LOC: 3N 12:31 → ED 12:31 → SUATTDRO 18:26 → 3N 20:49

== ENCOUNTER 2021-06-22 08:11 | Inpatient (IN) ==
--- NOTE | 2021-06-22 08:37 | Emergency Department Note ---
History of Present Illness General Chief complaint: Fall Stated complaint: Fall w/ right hip pain Time Seen by Provider: 06/22/21 08:13 Source: EMS and RN notes reviewed Mode of arrival: EMS Limitations: altered mental status History of Present Illness Provider complaint: Unwitnessed fall, altered mental status This is an 86-year-old male presents emergency department via EMS after an unwitnessed fall at the assisted living facility where he resides. I did contact staff at there and was told that they had rounded on the patient's between 7 and 710 this morning and patient was seated in a chair. They walked b y approximately 15 to 20 minutes later noted the patient was on the floor. They noted abrasions to his right leg. They were concerned for recurrent head trauma as they saw blood on his heater as well as a hole in the wall. They also state they saw an abrasion noted to the right elbow. They state they have noted a cognitive decline in the patient over the course of the last month. They state typically he could ambulate independently and perform basic ADLs without difficulty. Patient here yesterday following a fall as well, no evidence of significant trauma, diagnosed with cellulitis and return to the facility. Pt seen during a time of high acuity and national emergency pandemic while w earing PPE. Home Medications Medication Instructions Recorded Confirmed Type atorvastatin 20 mg tablet 20 mg PO QAM 11/27/19 06/22/21 History lisinopril 20 mg tablet 20 mg PO QAM 11/27/19 06/22/21 History tamsulosin 0.4 mg capsule 0.4 mg PO QAM 11/27/19 06/22/21 History acetaminophen 325 mg tablet 650 mg PO Q6 PRN MDD 3g 10/20/20 06/22/21 History cholecalciferol (vitamin D3) 25 25 mcg PO 3XWK 10/20/20 06/22/21 History mcg (1,000 unit) capsule (Vitamin D3) cyanocobalamin (vitamin B-12) 1,000 mcg PO QAM 10/20/20 06/22/21 History 1,000 mcg tablet (Vitamin B-12) furosemide 40 mg tablet 40 mg PO QAM 10/20/20 06/22/21 History lorazepam 0.5 mg tablet 0.5 mg PO DAILY PRN 10/20/20 06/22/21 History quetiapine 50 mg tablet 50 mg PO BID PRN 10/20/20 06/22/21 History vitamin A 10,000 unit capsule 10,000 unit PO QAM 10/20/20 06/22/21 History polyethylene glycol 3350 17 gram 17 g PO DAILY 03/18/21 06/22/21 History oral powder packet (Miralax) Triam 0.1%Cr/Lubriderm Lo 1 applic TOPICAL BID 05/17/21 06/22/21 History zinc sulfate 220 mg capsule 220 mg PO QAM 05/17/21 06/22/21 History cephalexin 500 mg capsule 500 mg PO Q6H 7 Days #28 cap 06/21/21 06/22/21 Rx docusate sodium 100 mg capsule 100 mg PO BID 06/21/21 06/22/21 History (Colace) haloperidol 0.5 mg tablet 0.5 mg PO DAILY 06/21/21 06/22/21 History haloperidol 2 mg tablet 2 mg PO DAILY 06/21/21 06/22/21 History Allergies Allergy/AdvReac Type Severity Reaction Status Date / Time No Known Allergies Allergy Mild Verified 05/17/21 17:19 Past Med/Surg History Medical History Diverticulitis Hypertensive kidney disease Rhinitis Surgical History History of appendectomy S/P colon resection Social History Smoking Status: Unknown if ever smoked Second Hand Exposure: No; Do You Dip or Chew Tobacco: No; Tobacco Cessation Education Requested by Patient: No Hx Alcohol Use: No Hx Substance Use: No Preferred Language: Monegasque Communication Ability: Impaired Communication Ability Comment: patient confused, follows some commands Vest Busheler Required: No Beliefs That Will Affect Care: None Current Living Situation: Personal Care Facility Feels Safe at Home: Yes Assistive Devices: Walker Assistive Devices Comment: patient cognitively impaired, unable to verbalize Review of Systems A total of 10 systems reviewed and were otherwise negative All systems reviewed & are unremarkable except as noted in HPI & below Physical Exam Vital Signs Vital Signs - 24 hr 06/22/21 12:00 06/22/21 13:00 06/22/21 13:30 Pulse Rate 91 H 90 Pulse Rate [Apical] 101 H Respiratory Rate 16 20 17 Respiratory Effort / Characteristics Non-Labored Respiratory Depth Normal Blood Pressure 134/82 Blood Pressure [Left Arm] 153/86 H Blood Pressure Mean 99 Blood Pressure Mean [Left Arm] 108 Pulse Oximetry 96 99 Oxygen Delivery Method Room Air Room Air 06/22/21 14:00 Pulse Rate 89 Pulse Rate [Apical] Respiratory Rate 18 Respiratory Effort / Characteristics Respiratory Depth Blood Pressure Blood Pressure [Left Arm] Blood Pressure Mean Blood Pressure Mean [Left Arm] Pulse Oximetry 99 Oxygen Delivery Method Room Air GENERAL: Somnolent but arousable, well nourished, no distress, non-toxic HEAD: abrasion noted to vertex, no active bleeding, no surrounding cellulitis, head otherwise atraumatic, no evidence of facial trauma EYE EXAM: normal conjunctiva, PERRL and EOM's grossly intact OROPHARYNX: no exudate, no erythema, lips, buccal mucosa, and tongue normal and mucous membranes are dry NECK: supple, no nuchal rigidity, no adenopathy, non-tender LUNGS: Clear to auscultation. Normal chest wall mechanics, no w/r/r HEART: no murmurs, S1 normal and S2 normal ABDOMEN: abdomen soft, non-tender, normo-active bowel sounds, no masses, no rebound or guarding. BACK: Back is symmetrical on inspection and there is no deformity, no midline tenderness, no CVA tenderness. SKIN: no rashes and no bruising, no petechiae UPPER EXTREMITIES: upper extremities are grossly normal. FROM, nml pulses b/l. Contusion noted to left elbow seen yesterday. New area of abrasion and evolving small contusion to the right elbow also. No apparent distress or pain with palpation over the bony prominences. LOWER EXTREMITIES: 2+ pitting edema. nml pulses b/l. Areas of erythema and previously demarcated lines noted to b/l distal LE, new areas of erythema noted right lateral LE with abrasions noted just inferior to knee and proximal RUE just inferior to hip, compartments soft, no joint effusions. NEURO EXAM: Confused, easily agitated, cranial nerves II-XII grossly intact, normal speech although gives inappropriate answers, moves extremities spontaneously but will not follow commands for formal neuro testing, no obvious ataxia to limbs. Localizes and withdraws to painful stimuli. Course Course 1350: Patient still is not been seen by PT and OT, however after additional phone calls by case management, there are no available beds for a [facility] facility or a higher level of care. Due to concern for a safe discharge plan given the patient's recurrent falls and the current level of care in assisted living, case discussed with [facility] hospitalist team. Administered Medications Atorvastatin Calcium (Atorvastatin 20 Mg Tab) 20 mg PO [facility] Stop: 07/23/21 08:59 Last Admin: 06/23/21 08:53 Dose: 20 mg Documented by: [id number] Cyanocobalamin (Cyanocobalamin 500 Mcg Tablet (Vitamin B-12)) 1,000 mcg PO [facility] Stop: 07/23/21 08:59 Last Admin: 06/23/21 08:54 Dose: 1,000 mcg Documented by: [id number] Docusate Sodium (Docusate Sodium 100 Mg Cap) 100 mg PO BID [facility] Stop: 07/22/21 20:59 Last Admin: 06/23/21 08:55 Dose: 100 mg Documented by: [id number] Admin: 06/22/21 21:39 Dose: 100 mg Documented by: [id number] Enoxaparin Sodium (Enoxaparin 100 Mg/1ml Syr) 90 mg SQ Q12H [facility] Stop: 07/23/21 06:59 Last Admin: 06/23/21 08:47 Dose: 90 mg Documented by: [id number] Furosemide (Furosemide 40 Mg Tab) 40 mg PO [facility] Stop: 07/23/21 08:59 Last Admin: 06/23/21 08:56 Dose: 40 mg Documented by: [id number] Ceftriaxone Sodium 2,000 mg/ (Dextrose) 70 mls @ 100 mls/hr IV Q24H [facility]; Protocol Stop: 06/30/21 08:59 Last Admin: 06/23/21 09:44 Dose: 100 mls/hr Documented by: [id number] Lisinopril (Lisinopril 20 Mg Tab) 20 mg PO [facility] Stop: 07/23/21 08:59 Last Admin: 06/23/21 08:56 Dose: 20 mg Documented by: [id number] Pantoprazole Sodium (Pantoprazole 40 Mg Tab) 40 mg PO DAILY [facility] Stop: 07/22/21 18:59 Last Admin: 06/23/21 08:57 Dose: 40 mg Documented by: [id number] Admin: 06/22/21 21:52 Dose: 40 mg Documented by: [id number] Polyethylene Glycol (Polyethylene (Miralax) 17 Gm Pack) 17 gm PO DAILY [facility] Stop: 07/23/21 08:59 Last Admin: 06/23/21 08:58 Dose: 17 gm Documented by: [id number] Tamsulosin HCl (Tamsulosin Hcl 0.4 Mg Cap) 0.4 mg PO QAM [facility] Stop: 07/23/21 08:59 Last Admin: 06/23/21 08:58 Dose: 0.4 mg Documented by: [id number] Vitamin D (Cholecalciferol 1,000 Units 25 Mcg Tab) 1,000 units PO MoWeFr@0900 [facility] Stop: 07/23/21 08:59 Last Admin: 06/23/21 08:54 Dose: 1,000 units Documented by: [id number] Zinc Sulfate (Zinc Sulfate 220 Mg Capsule) [facility] Stop: 07/23/21 08:59 Last Admin: 06/23/21 08:58 Dose: 220 mg Documented by: [id number] Discontinued Medications Enoxaparin Sodium (Enoxaparin 100 Mg/1ml Syr) 90 mg SQ NOW ONE Stop: 06/22/21 18:46 Last Admin: 06/22/21 21:41 Dose: 90 mg Documented by: [id number] Ceftriaxone Sodium (Rocephin) 2,000 mg in 70 mls @ 140 mls/hr IV NOW STA Stop: 06/22/21 09:59 Last Infusion: 06/22/21 10:40 Dose: 0 mls/hr Documented by: [id number] Admin: 06/22/21 10:09 Dose: 140 mls/hr Documented by: [id number] Medical Decision Making Differential Diagnosis Differential diagnoses include major intracranial, cervical, spinal, thoracic, abdominal, pelvic and neurologic injury. Fracture, contusion, sprain, strain, laceration, abrasions included as well. Medical Records Attestation: I reviewed the patient's medical records. Home Medications Current Medication List: was personally reviewed by me Laboratory Data Attestation: I reviewed the patient's lab results. Result diagrams: 06/23/21 07:41 06/23/21 07:41 Lab Results 06/22/21 06/22/21 06/22/21 Range/Units 08:58 08:58 08:58 WBC 12.89 H (4.8-10.8) K/uL RBC 4.23 L (4.7-6.1) M/uL Hgb 13.4 L (14.0-18.0) g/dL Hct 40.8 L (42-52) % MCV 96.5 (80-100) fL MCH 31.7 (25-34) pg MCHC 32.8 (32-36) g/dL RDW Std Deviation 47.4 H (36.4-46.3) fL RDW Coeff of Mohit 13.6 (11.5-14.5) % Plt Count 197 (130-400) K/uL MPV 10.0 (7.4-10.4) fL Immature Gran % (Auto) 0.4 % Neut % (Auto) 85.3 % Lymph % (Auto) 6.4 % [place] % (Auto) 6.3 % Eos % (Auto) 1.3 % Baso % (Auto) 0.3 % Neut # (Auto) 10.99 H (1.4-6.5) K/uL Lymph # (Auto) 0.83 L (1.2-3.4) K/uL [place] # (Auto) 0.81 H (0.11-0.59) K/uL Eos # (Auto) 0.17 (0-0.5) K/uL Baso # (Auto) 0.04 (0-0.2) K/uL Immature Gran # (Auto) 0.05 H (0.00-0.02) K/uL Sodium 138 (136-145) mmol/L Potassium 3.9 (3.5-5.1) mmol/L Chloride 104 (98-107) mmol/L Carbon Dioxide 27 (21-32) mmol/L Anion Gap 7.0 (3-11) BUN 22 H (7-18) mg/dl Creatinine 0.99 (0.6-1.4) mg/dl Est Cr Clr Drug Dosing Not Reportable Est GFR ( Amer) 80.2 ml/min Est GFR (Non-Af Amer) 69.2 ml/min BUN/Creatinine Ratio 21.8 H (10-20) Glucose 99 (70-99) mg/dl Calcium 9.1 (8.5-10.1) mg/dl Total Bilirubin 1.3 H (0.2-1) mg/dl AST 49 H (15-37) U/L ALT 33 (12-78) Alkaline Phosphatase 82 (45-117) U/L Total Creatine Kinase 1394 H (39-308) U/L Total Protein 6.7 (6.4-8.2) gm/dl Albumin 3.4 (3.4-5.0) gm/dl Globulin 3.3 (2.5-4.0) gm/dl Albumin/Globulin Ratio 1.0 (0.9-2) Imaging Data Radiologist's Impression: Cervical Spine CT 06/22/21 08:42 CT SCAN OF THE CERVICAL SPINE CLINICAL HISTORY: Fall. COMPARISON STUDY: CT of the cervical spine dated 06/21/2021. TECHNIQUE: CT scan of the cervical spine is performed from the skull base to the upper thoracic spine. Images are reviewed in the axial, sagittal, and coronal planes. IV contrast was not administered for this examination. A dose lowering technique was utilized adhering to the principles of ALARA. CT DOSE: 459.97 mGycm FINDINGS: Skeletal structures: The skeletal structures are osteopenic. There is no evidence of fracture or subluxation involving the cervical spine. Vertebral body height is maintained. There is minimal anterolisthesis at C4-C5 and C5-C6. Alignment is otherwise preserved. Anterior osteophytes are seen throughout. The re is straightening of the cervical lordosis. The odontoid process and lateral masses are intact. The atlantoaxial articulation is preserved noting productive degenerative change. The spinous processes appear intact. There is moderate multilevel cervical spondylosis. Uncovertebral and facet arthropathy contribute to neural foraminal narrowing at several levels. Intervertebral discs: There is mild degenerative disc space narrowing, greatest at C6-C7. Central canal: A posterior disc osteophyte complex at C6-C7 may contribute to mild acquired compromise of the central canal. Soft tissues: The prevertebral and paraspinous soft tissues are within normal limits. Calvarium: The visualized calvarium at the skull base appears intact. Brain parenchyma: Partially visualized brain parenchyma at the skull base is within normal limits noting age-related involutional change. Sinuses and mastoids: Trace mucosal thickening is noted in the sphenoid sinuses. There is a right mastoid effusion. The left mastoid air cells are well pneumatized. Lung apices: Clear as visualized. IMPRESSION: 1. There is no evidence of fracture or subluxation involving the cervical spine. 2. Osteopenia and spondylotic change as above. ACT 112: Negative or not required by law. Electronically signed by: Silver Roebrt M.D. 06/22/2021 9:28 AM Chest X-Ray 06/22/21 08:42 XR chest 1V portable CLINICAL HISTORY: trauma TECHNIQUE: Single frontal radiograph of the chest was obtained. Comparison: Comparison is made to chest one view 06/21/2021 FINDINGS: No lines and tubes are seen. The cardiomediastinal silhouette is normal. Lungs a re underinflated but clear. No evidence of pleural effusion or pneumothorax. IMPRESSION: No acute chest disease. ACT 112: Negative or not required by law. Electronically signed by: Mani Mills M.D. 06/22/2021 10:[address] 06/22/21 08:42 CT head/brain wo con CLINICAL HISTORY: 86 years-old Male with trauma. Acute head trauma TECHNIQUE: Multiple axial CT images of the head were obtained without contrast. A dose lowering technique was utilized adhering to the principles of ALARA. CT DOSE: 1577.26 mGycm COMPARISON: Head CT 06/21/2021. FINDINGS: No acute intracranial hemorrhage, midline shift, intracranial mass, hydrocephalus, territorial ischemia or abnormal extra-axial collection. Age- related involutional changes with white matter hypodensities suggestive of chronic microvascular ischemic disease. Calcifications of the falx cerebri. Cerebral vascular calcifications. The calvarium is intact. Trace right mastoid effusion. Left mastoid air cells are clear. Mild mucosal thickening of the maxillary sinuses. Prior bilateral lens repair. Small contusion the left parietal scalp. IMPRESSION: No acute intracranial abnormality or calvarial fracture. ACT 112: Negative or not required by law. The above report was generated using voice recognition software. It may contain grammatical, syntax or spelling errors. Electronically signed by: Ron Palma M.D. 06/22/2021 9:23 AM Hip/Pelvis X-Ray 06/22/21 08:42 XR hip RT 2V w pelvis HISTORY: 86 years-old Male fall, trauma acute pelvic pain status post fall COMPARISON: Pelvis radiograph 06/21/2021 TECHNIQUE: AP view of the pelvis with 2 views of the right hip FINDINGS: Mild osteoarthritis of the bilateral hips. No acute fracture, dislocation or avascular necrosis. Mild soft tissue prominence lateral to the right hip. No opaque foreign body. IMPRESSION: No acute fracture. ACT 112: Negative or not required by law. The above report was generated using voice recognition software. It may contain grammatical, syntax or spelling errors. Electronically signed by: Ron Palma M.D. 06/22/2021 10:06 AM ECG Data Attestation: I personally reviewed and interpreted this ECG as follows: Indication: + weakness Rate (beats per minute): 92 Rhythm: + normal sinus ECG Intervals/blocks: + Normal QRS and + Normal QT ECG [place]: + Normal ECG ST segments: + Nonspecific ST abnormalities Additional Comments: Significant baseline artifact MDM Narrative This is an elderly male sent in after an unwitnessed fall for the second day in a row from a local assisted living facility. According to staff there they had noticed a decline in the patient over the course of the last month. Patient evaluated yesterday after an unwitnessed fall, no significant trauma noted, patient diagnosed with cellulitis and return to the facility. Facility does not have any options to upgrade the patient's level of care to prevent any additional falls. Case discussed with therapeutic case manager here in the department. Patient was given additional antibiotics as a precaution since he was started on them yesterday for likely cellulitis of the lower extremities. Leukocytosis today is improving. Patient afebrile hemodynamically stable throughout. We did attempt to obtain PT and OT consult to help facilitate placement however there are no local availabilities. Case discussed with hospitalist for additional inpatient management pending placement into a higher level of care. An order was placed for continuous cardiac monitoring. The monitor shows a rate of _80__ with _normal sinus__ rhythm. Impression & Plan CHI (closed head injury), Cellulitis, Abrasion, Fall, Contusion Discharge Plan Visit Data Chief Complaint: Fall Stated Complaint: Fall w/ right hip pain ED Provider: Lisa Sandhu Discharge Problem: CHI (closed head injury), Cellulitis, Abrasion, Fall, Contusion Patient Disposition: Admitted As Inpatient Discharge Instructions Interventions: ED Discharge Assessment Last Done: 06/22/21 18:24 Discharge Problem: CHI (closed head injury) Qualifiers: Encounter type: initial encounter Qualified Code(s): S09.90XA - Unspecified injury of head, initial encounter Cellulitis Qualifiers: Site of cellulitis: extremity Site of cellulitis of extremity: lower extremity Laterality: unspecified laterality Qualified Code(s): L03.119 - Cellulitis of unspecified part of limb Fall Qualifiers: Encounter type: initial encounter Qualified Code(s): W19.XXXA - Unspecified fall, initial encounter Contusion Qualifiers: Encounter type: initial encounter Contusion area: elbow Laterality: unspecified laterality Qualified Code(s): S50.00XA - Contusion of unspecified elbow, initial encounter
[2021-06-22 09:19] LABS: Basophils # (auto) 0.04 K/uL (0-0.2); Basophils % (auto) 0.3 %; Eosinophils # (auto) 0.17 K/uL (0-0.5); Eosinophils % (auto) 1.3 %; Hematocrit (blood only) 40.8 % (42-52); Hemoglobin 13.4 g/dL (14.0-18.0); Immature Granulocytes # (auto) 0.05 K/uL (0.00-0.02); Immature Granulocytes % (auto) 0.4 %; Lymphocytes # (auto) 0.83 K/uL (1.2-3.4); Lymphocytes % (auto) 6.4 %; Mean Corpuscular Hemoglobin 31.7 pg (25-34); Mean Corpuscular Hgb Conc 32.8 g/dL (32-36); Mean Corpuscular Volume 96.5 fL (80-100); Monocytes # (auto) 0.81 K/uL (0.11-0.59); Monocytes % (auto) 6.3 %; Neutrophils # (auto) 10.99 K/uL (1.4-6.5); Neutrophils % (auto) 85.3 %; Platelet Count 197 K/uL (130-400); RDW Coefficient of Variation 13.6 % (11.5-14.5); RDW Standard Deviation 47.4 fL (36.4-46.3); Red Blood Count 4.23 M/uL (4.7-6.1); White Blood Count 12.89 K/uL (4.8-10.8)
--- NOTE | 2021-06-22 09:25 | CT Scan Report ---
CT head/brain wo con CLINICAL HISTORY: 86 years-old Male with trauma. Acute head trauma TECHNIQUE: Multiple axial CT images of the head were obtained without contrast. A dose lowering tech nique was utilized adhering to the principles of ALARA. CT DOSE: 1577.26 mGycm COMPARISON: Head CT 06/21/2021. FINDINGS: No acute intracranial hemorrhage, midline shift, intracranial mass, hydrocephalus, territorial ischem ia or abnormal extra-axial collection. Age-related involutional changes with white matter hypodensiti es suggestive of chronic microvascular ischemic disease. Calcifications of the falx cerebri. Cerebral vascular calcifications. The calvarium is intact. Trace right mastoid effusion. Left mastoid air cells are clear. Mild mucosa l thickening of the maxillary sinuses. Prior bilateral lens repair. Small contusion the left parietal scalp. IMPRESSION: No acute intracranial abnormality or calvarial fracture. ACT 112: Negative or not required by law. The above report was generated using voice recognition software. It may contain grammatical, syntax o r spelling errors. Electronically signed by: Ron Palma M.D. 06/22/2021 9:23 AM
--- NOTE | 2021-06-22 09:29 | CT Scan Report ---
CT SCAN OF THE CERVICAL SPINE CLINICAL HISTORY: Fall. COMPARISON STUDY: CT of the cervical spine dated 06/21/2021. TECHNIQUE: CT scan of the cervical spine is performed from the skull base to the upper thoracic spine . Images are reviewed in the axial, sagittal, and coronal planes. IV contrast was not administered fo r this examination. A dose lowering technique was utilized adhering to the principles of ALARA. CT DOSE: 459.97 mGycm FINDINGS: Skeletal structures: The skeletal structures are osteopenic. There is no evidence of fracture or subl uxation involving the cervical spine. Vertebral body height is maintained. There is minimal anterolis thesis at C4-C5 and C5-C6. Alignment is otherwise preserved. Anterior osteophytes are seen throughout . There is straightening of the cervical lordosis. The odontoid process and lateral masses are intact . The atlantoaxial articulation is preserved noting productive degenerative change. The spinous proce sses appear intact. There is moderate multilevel cervical spondylosis. Uncovertebral and facet arthro javon contribute to neural foraminal narrowing at several levels. Intervertebral discs: There is mild degenerative disc space narrowing, greatest at C6-C7. Central canal: A posterior disc osteophyte complex at C6-C7 may contribute to mild acquired compromis e of the central canal. Soft tissues: The prevertebral and paraspinous soft tissues are within normal limits. Calvarium: The visualized calvarium at the skull base appears intact. Brain parenchyma: Partially visualized brain parenchyma at the skull base is within normal limits not ing age-related involutional change. Sinuses and mastoids: Trace mucosal thickening is noted in the sphenoid sinuses. There is a right mas toid effusion. The left mastoid air cells are well pneumatized. Lung apices: Clear as visualized. IMPRESSION: 1. There is no evidence of fracture or subluxation involving the cervical spine. 2. Osteopenia and spondylotic change as above. ACT 112: Negative or not required by law. Electronically signed by: Silver Robert M.D. 06/22/2021 9:28 AM
[2021-06-22] MEDS ORDERED: cefTRIAXone SODIUM 2,000 MG/70 ML BAG IV STA (09:30)
[2021-06-22 09:42] LABS: Alanine Aminotransferase 33 (12-78); Albumin Level 3.4 gm/dl (3.4-5.0); Aspartate Aminotransferase 49 U/L (15-37); BUN Creatinine Ratio 21.8 (10-20); Blood Urea Nitrogen 22 mg/dl (7-18); Calcium 9.1 mg/dl (8.5-10.1); Carbon Dioxide 27 mmol/L (21-32); Chloride 104 mmol/L (98-107); Est GFR (African American) 80.2 ml/min; Est GFR (Non-African American) 69.2 ml/min; Glucose 99 mg/dl (70-99); Potassium 3.9 mmol/L (3.5-5.1); Sodium 138 mmol/L (136-145)
[2021-06-22 09:45] LABS: Alkaline Phosphatase 82 U/L (45-117); Bilirubin,Total 1.3 mg/dl (0.2-1); Globulin 3.3 gm/dl (2.5-4.0); Total Protein 6.7 gm/dl (6.4-8.2)
--- NOTE | 2021-06-22 10:07 | XRay Report ---
XR hip RT 2V w pelvis HISTORY: 86 years-old Male fall, trauma acute pelvic pain status post fall COMPARISON: Pelvis radiograph 06/21/2021 TECHNIQUE: AP view of the pelvis with 2 views of the right hip FINDINGS: Mild osteoarthritis of the bilateral hips. No acute fracture, dislocation or avascular necrosis. Mild soft tissue prominence lateral to the right hip. No opaque foreign body. IMPRESSION: No acute fracture. ACT 112: Negative or not required by law. The above report was generated using voice recognition software. It may contain grammatical, syntax o r spelling errors. Electronically signed by: Ron Palma M.D. 06/22/2021 10:06 AM
--- NOTE | 2021-06-22 10:19 | XRay Report ---
XR chest 1V portable CLINICAL HISTORY: trauma TECHNIQUE: Single frontal radiograph of the chest was obtained. Comparison: Comparison is made to chest one view 06/21/2021 FINDINGS: No lines and tubes are seen. The cardiomediastinal silhouette is normal. Lungs are underinflated but clear. No evidence of pleural effusion or pneumothorax. IMPRESSION: No acute chest disease. ACT 112: Negative or not required by law. Electronically signed by: Mani Mills M.D. 06/22/2021 10:18 AM
--- NOTE | 2021-06-22 15:17 | History & Physical Report ---
Date of Service June 22, 2021 Assessment & Plan (1) AMS (altered mental status): (2) DVT (deep venous thrombosis): (3) Fall: (4) Cellulitis: (5) Abrasion: (6) BPH loc w urin obs/LUTS: (7) HTN (hypertension): (8) Dementia: (9) Total bilirubin, elevated: Plan: AMS/Fall: -Per nurse at [facility] pt was started on Haloperidol 2.5mg qhs 3 weeks ago for agitation and combativeness - CT head: no acute finding -he is also taking quetiapine 50mg BID prn and lorazepam 0.5mg qhs prn ---- will hold both -his AMS could be 2/2 meds SE -BCx from yesterday (prior ER visit) growing G+ cocci - for now will continue ceftriaxone for cellulitis - repeating BCx and obtaining UA and UCx - will get PT/OT eval LLE DVT: -very likely provoked: per nurse due to haloperidol pt has been mostly sleeping -will start the pt on therapeutic lovenox and DOAC on discharge B/L LE cellulitis: -pt does have chronic LE swelling & lymphedema -for now will continue Ceftriaxone Elevated Tbili: -US abd unremarkable -will trend CMP: if T bili increases then MRCP HTN/Constipation: -continue home meds Diet: cardiac diet DVT ppx: therapeutic Lovenox History of Present Illness Chief Complaint: AMS Primary Care Provider: [facility] Pt is a 86 y/o M with hx of HTN, HLD, Dementia, hx of Diverticulitis, hx of colon resection, CKD III, BPH, Insomnia, b/l LE lymphedema, AVM of colon brought in from Assisted living ([facility]) after a fall and AMS. Pt was seen in the ER yesterday for fall and AMS. He was dx with b/l LE cellulitis and discharged home. Today at bedside: pt complained of abd pain (diffuse) otherwise denied any CP, SOB, N/V or Headache. Had to repeat the questions multiple times during the history taking and due to AMS history is limited Spoke to MARY Hay at [facility]: pt was started on Haloperidol 2.5mg qhs 3 weeks ago for agitation Allergies Allergy/AdvReac Type Severity Reaction Status Date / Time No Known Allergies Allergy Mild Verified 05/17/21 17:19 Home Medications Medication Instructions Recorded Confirmed Type atorvastatin 20 mg tablet 20 mg PO QAM 11/27/19 06/22/21 History lisinopril 20 mg tablet 20 mg PO QAM 11/27/19 06/22/21 History tamsulosin 0.4 mg capsule 0.4 mg PO QAM 11/27/19 06/22/21 History acetaminophen 325 mg tablet 650 mg PO Q6 PRN MDD 3g 10/20/20 06/22/21 History cholecalciferol (vitamin D3) 25 25 mcg PO 3XWK 10/20/20 06/22/21 History mcg (1,000 unit) capsule (Vitamin D3) cyanocobalamin (vitamin B-12) 1,000 mcg PO QAM 10/20/20 06/22/21 History 1,000 mcg tablet (Vitamin B-12) furosemide 40 mg tablet 40 mg PO QAM 10/20/20 06/22/21 History lorazepam 0.5 mg tablet 0.5 mg PO DAILY PRN 10/20/20 06/22/21 History quetiapine 50 mg tablet 50 mg PO BID PRN 10/20/20 06/22/21 History vitamin A 10,000 unit capsule 10,000 unit PO QAM 10/20/20 06/22/21 History polyethylene glycol 3350 17 gram 17 g PO DAILY 03/18/21 06/22/21 History oral powder packet (Miralax) Triam 0.1%Cr/Lubriderm Lo 1 applic TOPICAL BID 05/17/21 06/22/21 History zinc sulfate 220 mg capsule 220 mg PO QAM 05/17/21 06/22/21 History cephalexin 500 mg capsule 500 mg PO Q6H 7 Days #28 cap 06/21/21 06/22/21 Rx docusate sodium 100 mg capsule 100 mg PO BID 06/21/21 06/22/21 History (Colace) haloperidol 0.5 mg tablet 0.5 mg PO DAILY 06/21/21 06/22/21 History haloperidol 2 mg tablet 2 mg PO DAILY 06/21/21 06/22/21 History Past Med/Surg History Medical History Diverticulitis Hypertensive kidney disease Rhinitis Surgical History History of appendectomy S/P colon resection Social History Smoking Status: Unknown if ever smoked Hx Alcohol Use: No Hx Substance Use: No Preferred Language: Greek Communication Ability: Effective Cone Former Required: No Beliefs That Will Affect Care: None Current Living Situation: Spouse Feels Safe at Home: Yes Assistive Devices: None Review of Systems Review of Systems: At least 10 Review of systems were reviewed and all negative except as indicated in HPI Physical Exam Physical Exam: General:. NAD, well developed, well nourished HEENT:.superficial skin tear near the occipital scalp area, Normocephalic, Normal Conjunctiva, EOMI, Sclera is non-icteric Lungs:. No signs of respiratory distress, CTA, no wheezing or crackles Heart:. Normal S1, S2, no murmur Abdominal:.Mild TTP of the LUQ, RUQ and epigastric area, ND, Soft MSK:b/l mild pitting edema of LE, with erythema (no streaking), L leg appeared more swollen than R leg, able to move both UE and LE equally Psych:.AAOx1, unable to recall date, and place Results & Data Results & Data ([facility]) Vital Signs (Past 12 Hours) Vital Signs Temp Pulse Pulse Resp BP BP Pulse Ox 06/22/21 14:00 89 18 99 06/22/21 13:30 90 17 06/22/21 13:00 91 H 20 134/82 99 06/22/21 12:00 101 H 16 153/86 H 96 06/22/21 11:00 114 H 22 151/80 H 95 06/22/21 09:30 80 16 06/22/21 09:18 86 18 06/22/21 08:55 78 15 06/22/21 08:22 36.9 C 82 18 137/81 97 Laboratory Results Short CBC 06/22/21 Range/Units 08:58 WBC 12.89 H (4.8-10.8) K/uL Hgb 13.4 L (14.0-18.0) g/dL Hct 40.8 L (42-52) % Plt Count 197 (130-400) K/uL BMP 06/22/21 08:58 Sodium 138 Potassium 3.9 Chloride 104 Carbon Dioxide 27 BUN 22 H Creatinine 0.99 Glucose 99 Calcium 9.1 Cardiac Enzymes 06/22/21 Range/Units 08:58 Total Creatine Kinase 1394 H (39-308) U/L Liver Function 06/22/21 Range/Units 08:58 Total Bilirubin 1.3 H (0.2-1) mg/dl AST 49 H (15-37) U/L ALT 33 (12-78) Alkaline Phosphatase 82 (45-117) U/L Albumin 3.4 (3.4-5.0) gm/dl Diagnostic Findings Cervical Spine CT 06/22/21 08:42 CT SCAN OF THE CERVICAL SPINE CLINICAL HISTORY: Fall. COMPARISON STUDY: CT of the cervical spine dated 06/21/2021. TECHNIQUE: CT scan of the cervical spine is performed from the skull base to the upper thoracic spine. Images are reviewed in the axial, sagittal, and coronal planes. IV contrast was not administered for this examination. A dose lowering technique was utilized adhering to the principles of ALARA. CT DOSE: 459.97 mGycm FINDINGS: Skeletal structures: The skeletal structures are osteopenic. There is no evidence of fracture or subluxation involving the cervical spine. Vertebral body height is maintained. There is minimal anterolisthesis at C4-C5 and C5-C6. Alignment is otherwise preserved. Anterior osteophytes are seen throughout. There is straightening of the cervical lordosis. The odontoid process and lateral masses are intact. The atlantoaxial articulation is preserved noting productive degenerative change. The spinous processes appear intact. There is moderate multilevel cervical spondylosis. Uncovertebral and facet arthropathy contribute to neural foraminal narrowing at several levels. Intervertebral discs: There is mild degenerative disc space narrowing, greatest at C6-C7. Central canal: A posterior disc osteophyte complex at C6-C7 may contribute to mild acquired compromise of the central canal. Soft tissues: The prevertebral and paraspinous soft tissues are within normal limits. Calvarium: The visualized calvarium at the skull base appears intact. Brain parenchyma: Partially visualized brain parenchyma at the skull base is within normal limits noting age-related involutional change. Sinuses and mastoids: Trace mucosal thickening is noted in the sphenoid sinuses. There is a right mastoid effusion. The left mastoid air cells are well pneumatized. Lung apices: Clear as visualized. IMPRESSION: 1. There is no evidence of fracture or subluxation involving the cervical spine. 2. Osteopenia and spondylotic change as above. ACT 112: Negative or not required by law. Electronically signed by: Silver Robert M.D. 06/22/2021 9:28 AM Chest X-Ray 06/22/21 08:42 XR chest 1V portable CLINICAL HISTORY: trauma TECHNIQUE: Single frontal radiograph of the chest was obtained. Comparison: Comparison is made to chest one view 06/21/2021 FINDINGS: No lines and tubes are seen. The cardiomediastinal silhouette is normal. Lungs are underinflated but clear. No evidence of pleural effusion or pneumothorax. IMPRESSION: No acute chest disease. ACT 112: Negative or not required by law. Electronically signed by: Mani Mills M.D. 06/22/2021 10:[address] 06/22/21 08:42 CT head/brain wo con CLINICAL HISTORY: 86 years-old Male with trauma. Acute head trauma TECHNIQUE: Multiple axial CT images of the head were obtained without contrast. A dose lowering technique was utilized adhering to the principles of ALARA. CT DOSE: 1577.26 mGycm COMPARISON: Head CT 06/21/2021. FINDINGS: No acute intracranial hemorrhage, midline shift, intracranial mass, hydrocephalus, territorial ischemia or abnormal extra-axial collection. Age- related involutional changes with white matter hypodensities suggestive of chronic microvascular ischemic disease. Calcifications of the falx cerebri. Cerebral vascular calcifications. The calvarium is intact. Trace right mastoid effusion. Left mastoid air cells are clear. Mild mucosal thickening of the maxillary sinuses. Prior bilateral lens repair. Small contusion the left parietal scalp. IMPRESSION: No acute intracranial abnormality or calvarial fracture. ACT 112: Negative or not required by law. The above report was generated using voice recognition software. It may contain grammatical, syntax or spelling errors. Electronically signed by: Ron Palma M.D. 06/22/2021 9:23 AM Hip/Pelvis X-Ray 06/22/21 08:42 XR hip RT 2V w pelvis HISTORY: 86 years-old Male fall, trauma acute pelvic pain status post fall COMPARISON: Pelvis radiograph 06/21/2021 TECHNIQUE: AP view of the pelvis with 2 views of the right hip FINDINGS: Mild osteoarthritis of the bilateral hips. No acute fracture, dislocation or avascular necrosis. Mild soft tissue prominence lateral to the right hip. No opaque foreign body. IMPRESSION: No acute fracture. ACT 112: Negative or not required by law. The above report was generated using voice recognition software. It may contain grammatical, syntax or spelling errors. Electronically signed by: Ron Palma M.D. 06/22/2021 10:06 AM Abdomen Ultrasound 06/22/21 14:34 US abdomen limited CLINICAL HISTORY: elevated LFTs TECHNIQUE: Multiple real-time sonographic images of the right upper quadrant were obtained. Comparison: None available at the time of this dictation. FINDINGS: The liver is diffusely homogenous with normal contour and echogenicity. No focal mass lesions are seen. No intrahepatic ductal dilatation is seen. No gallstones or sludge are identified within the gallbladder. The gallbladder wall is not thickened. There is no pericholecystic fluid present. A sonographic Miller's sign was not elicited by the power plant operator. The common duct measures 0.6 cm in diameter at the level of the hepatic artery. The visualized portions of the pancreas appear normal. The right kidney shows normal echogenicity, cortical thickness and renal contour. The right kidney shows no evidence of hydronephrosis or mass. No ascites or free fluid is seen in Holt's pouch. IMPRESSION: Unremarkable right upper quadrant ultrasound. ACT 112: Negative or not required by law. Electronically signed by: Mani Mills M.D. 06/22/2021 3:46 PM Venous Doppler Study 06/22/21 14:42 LEFT LOWER EXTREMITY VENOUS DOPPLER HISTORY: Left leg edema eval for DVT COMPARISON STUDY: None. FINDINGS: The left common femoral, superficial femoral, popliteal, anterior tibial, and peroneal veins are patent. There is occlusive thrombus seen within one of 2 mid left posterior tibial veins. IMPRESSION: Positive DVT seen within one of 2 left posterior tibial veins. ACT 112: Negative or not required by law. Electronically signed by: Cecil Zhao M.D. 06/22/2021 3:38 PM Code Status & VTE Plan VTE Prophylaxis Plan VTE Prophylaxis will be ordered: Yes (1) Cellulitis Laterality: unspecified laterality Site of cellulitis: extremity Site of cellulitis of extremity: lower extremity Qualified Code(s): L03.119 - Cellulitis of unspecified part of limb (2) Dementia Dementia behavioral disturbance: with behavioral disturbance Dementia type: vascular dementia Qualified Code(s): F01.51 - Vascular dementia with behavioral disturbance
--- NOTE | 2021-06-22 15:39 | Ultrasound Report ---
LEFT LOWER EXTREMITY VENOUS DOPPLER HISTORY: Left leg edema eval for DVT COMPARISON STUDY: None. FINDINGS: The left common femoral, superficial femoral, popliteal, anterior tibial, and peroneal vein s are patent. There is occlusive thrombus seen within one of 2 mid left posterior tibial veins. IMPRESSION: Positive DVT seen within one of 2 left posterior tibial veins. ACT 112: Negative or not required by law. Electronically signed by: Cecil Zhao M.D. 06/22/2021 3:38 PM
--- NOTE | 2021-06-22 15:47 | Ultrasound Report ---
US abdomen limited CLINICAL HISTORY: elevated LFTs TECHNIQUE: Multiple real-time sonographic images of the right upper quadrant were obtained. Comparison: None available at the time of this dictation. FINDINGS: The liver is diffusely homogenous with normal contour and echogenicity. No focal mass lesions are se en. No intrahepatic ductal dilatation is seen. No gallstones or sludge are identified within the gallbladder. The gallbladder wall is not thickened. There is no pericholecystic fluid present. A son ographic Miller's sign was not elicited by the food processing chemist. The common duct measures 0.6 cm in diam eter at the level of the hepatic artery. The visualized portions of the pancreas appear normal. The right kidney shows normal echogenicity, cortical thickness and renal contour. The right kidney sh ows no evidence of hydronephrosis or mass. No ascites or free fluid is seen in Holt's pouch. IMPRESSION: Unremarkable right upper quadrant ultrasound. ACT 112: Negative or not required by law. Electronically signed by: Mani Milsl M.D. 06/22/2021 3:46 PM
[2021-06-22 17:30] LABS: Appearance Urine Clear (Clear); Bacteria Urine Automated Negative (Negative); Bilirubin Urine Negative (Negative); Blood Urine 1+ (Negative); Color Urine Dark Yellow; Glucose Urine UA Negative (Negative); Ketones Urine 2+ (Negative); Leukocyte Esterase Urine Negative (Negative); Nitrite Urine Negative (Negative); Protein Urine 1+ (Negative); RBC Urine Automated 0-4 /hpf (0-4); Specific Gravity Urine 1.026 (1.000-1.030); Urobilinogen Urine Negative (Negative); WBC Urine Automated 0 /hpf (0-5); pH Urine 6.5 (4.5-7.5)
[2021-06-22] MEDS ORDERED: ACETAMINOPHEN 325 MG TAB PO PRN (18:24)
[2021-06-22] MEDS ORDERED: ONDANSETRON INJ 2 MG/ML 2 ML VIAL IV PRN (18:24)
[2021-06-22] MEDS ORDERED: POLYETHYLENE (MIRALAX) 17 GM PACK PO PRN (18:24)
[2021-06-22] MEDS ORDERED: PATIENT'S HEIGHT AND/OR WEIGHT NEEDED SCH (18:45)
[2021-06-22] MEDS ORDERED: ENOXAPARIN 100 MG/1ML SYR SQ ONE (18:45)
[2021-06-22] MEDS: DOCUSATE SODIUM 100 MG CAP PO SCH (21:39)
[2021-06-22] MEDS: PANTOprazole 40 MG TAB PO SCH (21:52)
[2021-06-23] MEDS ORDERED: OLANZapine 10 MG/2.1 ML SDV IM PRN (05:12)
[2021-06-23 07:56] LABS: Hematocrit (blood only) 39.2 % (42-52); Mean Corpuscular Hemoglobin 31.8 pg (25-34); Mean Corpuscular Hgb Conc 33.2 g/dL (32-36); Mean Corpuscular Volume 95.8 fL (80-100); Mean Platelet Volume 9.8 fL (7.4-10.4); Platelet Count 192 K/uL (130-400); RDW Coefficient of Variation 13.4 % (11.5-14.5); RDW Standard Deviation 46.8 fL (36.4-46.3); Red Blood Count 4.09 M/uL (4.7-6.1); White Blood Count 11.09 K/uL (4.8-10.8)
[2021-06-23 08:37] LABS: Albumin Level 2.9 gm/dl (3.4-5.0); BUN Creatinine Ratio 24.9 (10-20); Calcium 8.5 mg/dl (8.5-10.1); Creatinine Clr Calc Pharmacy 72.7 ml/min; Est GFR (African American) 95.4 ml/min; Est GFR (Non-African American) 82.3 ml/min; Potassium 3.6 mmol/L (3.5-5.1)
[2021-06-23 08:40] LABS: Albumin Globulin Ratio 0.9 (0.9-2); Globulin 3.1 gm/dl (2.5-4.0)
[2021-06-23] MEDS: ENOXAPARIN 100 MG/1ML SYR SQ SCH ×2 (08:47→21:07)
[2021-06-23] MEDS: ATORVASTATIN 20 MG TAB PO SCH (08:53)
[2021-06-23] MEDS: CHOLECALCIFEROL 1,000 UNITS 25 MCG TAB PO SCH (08:54)
[2021-06-23] MEDS: CYANOCOBALAMIN 500 MCG TABLET (VITAMIN B-12) PO SCH (08:54)
[2021-06-23] MEDS: DOCUSATE SODIUM 100 MG CAP PO SCH ×2 (08:55→21:08)
[2021-06-23] MEDS: lisinopril 20 MG TAB PO SCH (08:56)
[2021-06-23] MEDS: FUROSEMIDE 40 MG TAB PO SCH (08:56)
[2021-06-23] MEDS: PANTOprazole 40 MG TAB PO SCH (08:57)
[2021-06-23] MEDS: POLYETHYLENE (MIRALAX) 17 GM PACK PO SCH (08:58)
[2021-06-23] MEDS: TAMSULOSIN HCL 0.4 MG CAP PO SCH (08:58)
[2021-06-23] MEDS: ZINC SULFATE 220 MG CAPSULE PO SCH (08:58)
[2021-06-23] MEDS ORDERED: NON-FORMULARY MEDICATION (Vitamin A 10,000 unit Capsule) PO SCH (09:00)
[2021-06-23] MEDS ORDERED: PANTOprazole 40 MG TAB PO SCH (09:00)
[2021-06-23] MEDS: cefTRIAXone SODIUM 2,000 MG in DEXTROSE 5% 50 ML IV SCH (09:44)
--- NOTE | 2021-06-23 13:39 | Electrocardiogram Report ---
Test Reason : Blood Pressure : / mmHG Vent. Rate : 092 BPM Atrial Rate : 092 BPM P-R Int : 164 ms QRS Dur : 092 ms QT Int : 394 ms P-R-T Axes : 000 010 049 degrees QTc Int : 487 ms Poor data quality, interpretation may be adversely affected Sinus rhythm Low voltage QRS Borderline ECG When compared with ECG of 21-JUN-2021 09:09, (unconfirmed) No significant change Confirmed by Jose Whitten ([id number]) on 06/23/2021 1:39:29 PM [facility] Confirmed By:Jose Whitten
--- NOTE | 2021-06-23 14:31 | Hospitalist Progress Note ---
Date of Service June 23, 2021 Assessment & Plan (1) AMS (altered mental status): (2) DVT (deep venous thrombosis): (3) Fall: (4) Cellulitis: (5) Abrasion: (6) BPH loc w urin obs/LUTS: (7) HTN (hypertension): (8) Dementia: (9) Total bilirubin, elevated: Plan: AMS/Fall Patient seen in ED on 06/21 for altered mental status and fall. Patient was diagnosed with bilateral lower extremity cellulitis and discharged home on cephalexin. Per admitting note: Per nurse at assisted living pt was started on Haloperidol 2.5mg qhs 3 weeks ago for agitation and combativeness. He is also taking quetiapine 50mg BID prn and lorazepam 0.5mg qhs prn. Head CT negative for acute findings. Haldol, quetiapine, lorazepam all on hold. Consider resuming quetiapine tomorrow. AMS possibly secondary to polypharmacy vs. metabolic encephalopathy from infection (cellulitis, possible bacteremia) Positive blood cultures 1/2 blood cultures from 06/21 growing coag negative staph, not lugdunensis ? Contaminant On IV ceftriaxone (day 2) Repeat blood cultures pending Patient remains afebrile LLE DVT: Very likely provoked, per nurse due to haloperidol pt has been mostly sleeping Patient on therapeutic dose Lovenox, likely transition to DOAC at discharge B/L LE cellulitis: Patient with history of chronic lower extremity swelling and lymphedema Mild erythema noted to LLE today, no open areas noted On IV ceftriaxone as above Elevated Tbili: US abd unremarkable Resolved HTN BP controlled, continue furosemide and lisinopril DVT prophylaxis - on therapeutic dose Lovenox Dispo - Pending. Likely discharge back to [facility] once medically stable. PT/OT. Admission and Anticipated Discharge Date Admission Date: June 22, 2021 Supervising Physician Co-Signing Physician Notes 86-year-old male with history of hypertension, HLD, dementia, diverticulitis, colon resection, CKD stage III, BPH, insomnia, BLE lymphedema, AVM of colon was brought in from assisted living 06/22 after fall and altered mentation. Patient was recently started on haloperidol in the assisted living for agitation and combativeness which could have contributed to his fall. Patient is also getting treatment for cellulitis with Rocephin. At bedside exam, patient mumbles and it is hard to understand what he is trying to say. LLE has some mild erythema upon examination, trace edema BLE. Heart lungs and abdomen examinations were WNL. Patient was oriented to self. I have seen and examined the patient and have discussed the case with the provider above. I agree with the assessment and plan as stated. Subjective Patient seen and examined. Follow-up for altered mental status, bacteremia, DVT, cellulitis. Patient with underlying dementia, unable to provide any meaningful history. Mumbling at times, difficult to understand. Resting in bed, does not appear to be in any acute distress. Review of Systems Review of Systems: Unable to be obtained due to underlying dementia Physical Exam Constitutional: no acute distress resting in bed Respiratory: normal respiratory effort, lungs clear to auscultation Cardiovascular: Rate/Rhythm: regular rate and regular rhythm Vessels: normal peripheral pulses Extremities: + edema (trace BLE) Gastrointestinal (Abdomen): Percussion/Palpation: abdomen soft; abdomen nontender Skin: no rashes, warm and dry Neurologic: moves all extremities and awake; no focal motor deficits Speech / Cognition: + abnormal speech (Garbling, mumbled speech) Psychiatric: Orientation: alert and oriented to person; + not oriented to place and + not oriented to time Results & Data Results & Data ([facility]) Vital Signs (Past 12 Hours) Vital Signs Temp Pulse Resp BP Pulse Ox 06/23/21 07:09 37 C 83 18 162/79 H 98 Laboratory Results Short CBC 06/23/21 Range/Units 07:41 WBC 11.09 H (4.8-10.8) K/uL Hgb 13.0 L (14.0-18.0) g/dL Hct 39.2 L (42-52) % Plt Count 192 (130-400) K/uL BMP 06/23/21 07:41 Sodium 140 Potassium 3.6 Chloride 106 Carbon Dioxide 26 BUN 19 H Creatinine 0.78 Glucose 97 Calcium 8.5 Cardiac Enzymes 06/22/21 Range/Units 08:58 Total Creatine Kinase 1394 H (39-308) U/L Liver Function 06/23/21 Range/Units 07:41 Total Bilirubin 1.0 (0.2-1) mg/dl AST 60 H (15-37) U/L ALT 34 (12-78) Alkaline Phosphatase 75 (45-117) U/L Albumin 2.9 L (3.4-5.0) gm/dl Urine 06/22/21 Range/Units 17:15 Urine Color Dark Yellow Urine Appearance Clear (Clear) Urine pH 6.5 (4.5-7.5) Ur Specific [place] 1.026 (1.000-1.030) Urine Protein 1+ H (Negative) Urine Glucose (UA) Negative (Negative) (1) Cellulitis Laterality: unspecified laterality Site of cellulitis: extremity Site of cellulitis of extremity: lower extremity Qualified Code(s): L03.119 - Cellulitis of unspecified part of limb (2) Dementia Dementia behavioral disturbance: with behavioral disturbance Dementia type: vascular dementia Qualified Code(s): F01.51 - Vascular dementia with behavioral disturbance
--- NOTE | 2021-06-23 16:50 | XRay Report ---
XR pelvis 1-2V routine CLINICAL HISTORY: HIP AND BACK PAIN TECHNIQUE: A single frontal view of the pelvis was obtained. Comparison: None available at the time of this dictation. FINDINGS: There is no evidence of acute fracture or dislocation. The bones are anatomically aligned. Joint spac es are well-maintained. The soft tissues are unremarkable. IMPRESSION: No evidence of acute bony injury. ACT 112: Negative or not required by law. Electronically signed by: Mani Mills M.D. 06/23/2021 4:49 PM
[2021-06-24 06:01] LABS: Hematocrit (blood only) 38.3 % (42-52); Hemoglobin 12.7 g/dL (14.0-18.0); Mean Corpuscular Hemoglobin 31.5 pg (25-34); Mean Corpuscular Hgb Conc 33.2 g/dL (32-36); Mean Platelet Volume 11.1 fL (7.4-10.4); Platelet Count 193 K/uL (130-400); RDW Coefficient of Variation 13.4 % (11.5-14.5); RDW Standard Deviation 46.4 fL (36.4-46.3); Red Blood Count 4.03 M/uL (4.7-6.1); White Blood Count 9.83 K/uL (4.8-10.8)
[2021-06-24 06:26] LABS: BUN Creatinine Ratio 28.1 (10-20); Calcium 8.7 mg/dl (8.5-10.1); Creatinine Clr Calc Pharmacy 68.3 ml/min; Est GFR (Non-African American) 80.2 ml/min; Potassium 3.1 mmol/L (3.5-5.1)
--- NOTE | 2021-06-24 09:23 | XRay Report ---
XR lumbar spine 2-3V CLINICAL HISTORY: pain TECHNIQUE: 3 views of the lumbar spine were obtained. Comparison: None available at the time of this dictation. FINDINGS: No fractures or subluxations are identified. Degenerative changes are seen in the lumbar spine. Align ment appears unremarkable. IMPRESSION: No acute fracture or subluxation. ACT 112: Negative or not required by law. Electronically signed by: Mani Mills M.D. 06/23/2021 4:08 PM
[2021-06-24] MEDS: ATORVASTATIN 20 MG TAB PO SCH (10:18)
[2021-06-24] MEDS: DOCUSATE SODIUM 100 MG CAP PO SCH ×3 (10:19→20:34)
[2021-06-24] MEDS: CYANOCOBALAMIN 500 MCG TABLET (VITAMIN B-12) PO SCH (10:19)
[2021-06-24] MEDS: FUROSEMIDE 40 MG TAB PO SCH (10:20)
[2021-06-24] MEDS: lisinopril 20 MG TAB PO SCH (10:20)
[2021-06-24] MEDS: PANTOprazole 40 MG TAB PO SCH (10:21)
[2021-06-24] MEDS: TAMSULOSIN HCL 0.4 MG CAP PO SCH (10:22)
[2021-06-24] MEDS: POLYETHYLENE (MIRALAX) 17 GM PACK PO SCH (10:22)
[2021-06-24] MEDS: ENOXAPARIN 100 MG/1ML SYR SQ SCH ×2 (10:36→20:33)
[2021-06-24] MEDS: cefTRIAXone SODIUM 2,000 MG in DEXTROSE 5% 50 ML IV SCH (10:43)
[2021-06-24] MEDS: ZINC SULFATE 220 MG CAPSULE PO SCH (11:21)
[2021-06-24] MEDS: POTASSIUM CHLORIDE CRTAB 20 MEQ TABCR PO SCH ×2 (11:21→12:57)
--- NOTE | 2021-06-24 14:20 | Hospitalist Progress Note ---
Date of Service June 24, 2021 Assessment & Plan (1) AMS (altered mental status): (2) DVT (deep venous thrombosis): (3) Fall: (4) Cellulitis: (5) Abrasion: (6) BPH loc w urin obs/LUTS: (7) HTN (hypertension): (8) Dementia: (9) Total bilirubin, elevated: (10) Rhabdomyolysis: Plan: AMS/Fall Patient seen in ED on 06/21 for altered mental status and fall. Patient was diagnosed with bilateral lower extremity cellulitis and discharged home on cep halexin. Per admitting note: Per nurse at assisted living pt was started on Haloperidol 2.5mg qhs 3 weeks ago for agitation and combativeness. He is also taking quetiapine 50mg BID prn and lorazepam 0.5mg qhs prn. Head CT negative for acute findings. Haldol, quetiapine, lorazepam all on hold. Consider resuming quetiapine tomorrow. AMS possibly secondary to polypharmacy vs. metabolic encephalopathy from infection (cellulitis, possible bacteremia) Positive blood cultures 1/2 blood cultures from 06/21 growing coag negative staph, not lugdunensis ? Contaminant On IV ceftriaxone (day 2) Repeat blood cultures NGTD 24hrs Patient remains afebrile Ileus pt c/o abd pain, + loose large Bm today KUB: Ileus downgrade diet to clears, avoid pain meds NSS 80cc/hr hold lasix for now, re assess tomorrow he is on bowel regimen Hypokalemia repleted repeat in a.m. LLE DVT: Very likely provoked, per nurse due to haloperidol pt has been mostly sleeping Patient on therapeutic dose Lovenox, will discuss with family warfarin vs eliquis B/L LE cellulitis: Patient with history of chronic lower extremity swelling and lymphedema Mild erythema noted to LLE today, no open areas noted On IV ceftriaxone as above - can transition to oral antibiotic at d/c Elevated Tbili: US abd unremarkable Resolved HTN BP controlled, continue furosemide and lisinopril DVT prophylaxis - on therapeutic dose Lovenox Dispo - Pending. Likely discharge back to [facility] once medically stable. PT/OT. Admission and Anticipated Discharge Date Admission Date: June 22, 2021 Supervising Physician Co-Signing Physician Notes 86-year-old male with history of hypertension, HLD, dementia, diverticulitis, colon resection, CKD stage III, BPH, insomnia, BLE lymphedema, AVM of colon was brought in from assisted living 06/22 after fall and altered mentation. Patient was recently started on haloperidol in the assisted living for agitation and combativeness which could have contributed to his fall leading to rhabdomyolysis. Patient is also getting treatment for cellulitis with Rocephin. At bedside exam, patient mumbles and it is hard to understand what he is trying to say. He is oriented to self. LLE has some mild erythema upon examination, trace edema BLE. Heart lungs and abdomen examinations were WNL. Repeat creatinine kinase tomorrow. I have seen and examined the patient and have discussed the case with the provider above. I agree with the assessment and plan as stated. Subjective Patient was seen and examined in room 383-2. Follow-up altered mental status. Patient unable provide meaningful history given dementia hx. Nurse reports pt c/o abd pain. 1 Loose BM today. Also report of spot of blood on the bed but no blood mixed in stool. ROS unable to be obtained. Review of Systems Review of Systems: Unobtainable due to cognitive status Physical Exam Physical Exam: Gen: WD/WN, NAD, A&O x 1 HEENT: Normocephalic, atraumatic, conjunctivae moist, sclerae anicteric, mucous membranes moist. Lung: Clear to Auscultation bilaterally, no wheezes/rales/rhonchi Heart: Regular rate, regular rhythm, no murmurs, rubs, or gallops Abdomen: distended abd, Soft, tender to touch throughout, high tinkling +BS x 4 Extremities: No edema, venous stasis b/l no warmth Skin: Warm, no rash, negative turgor. Results & Data Results & Data ([facility]) Vital Signs (Past 12 Hours) Vital Signs Temp Pulse Resp BP Pulse Ox 06/24/21 06:53 37.0 C 71 18 130/72 98 Laboratory Results Short CBC 06/24/21 Range/Units 05:29 WBC 9.83 (4.8-10.8) K/uL Hgb 12.7 L (14.0-18.0) g/dL Hct 38.3 L (42-52) % Plt Count 193 (130-400) K/uL [facility] 06/24/21 05:29 Sodium 141 Potassium 3.1 L Chloride 107 Carbon Dioxide 27 BUN 23 H Creatinine 0.83 Glucose 107 H Calcium 8.7 Diagnostic Findings Lumbar Spine X-Ray 06/23/21 00:00 XR lumbar spine 2-3V CLINICAL HISTORY: pain TECHNIQUE: 3 views of the lumbar spine were obtained. Comparison: None available at the time of this dictation. FINDINGS: No fractures or subluxations are identified. Degenerative changes are seen in the lumbar spine. Alignment appears unremarkable. IMPRESSION: No acute fracture or subluxation. ACT 112: Negative or not required by law. Electronically signed by: Mani Mills M.D. 06/23/2021 4:08 PM KUB X-Ray 06/24/21 14:13 KUB HISTORY: Generalized abdominal pain. COMPARISON: KUB 09/12/2007. FINDINGS: Prior cholecystectomy. Multiple dilated gas-filled loops of small and large bowel are seen throughout the abdomen. No gas identified within the rectum. No renal calculi. No ureteral calculi. No pneumoperitoneum or pneumatosis. IMPRESSION: Multiple dilated gas-filled loops of large and small bowel seen throughout the abdomen. This suggests an ileus. A distal large bowel obstruction could also have a similar appearance but is considered less likely. ACT 112: Negative or not required by law. Electronically signed by: Cecil Zhao M.D. 06/24/2021 2:47 PM Medications Administered Current Inpatient Medications Acetaminophen (Acetaminophen 325 Mg Tab) 650 mg PO Q4H PRN PRN Reason: pain/fever Stop: 07/22/21 18:23 Atorvastatin Calcium (Atorvastatin 20 Mg Tab) 20 mg PO QAM [facility] Stop: 07/23/21 08:59 Last Admin: 06/24/21 10:18 Dose: 20 mg Documented by: Cyanocobalamin (Cyanocobalamin 500 Mcg Tablet (Vitamin B-12)) 1,000 mcg PO QAM [facility] Stop: 07/23/21 08:59 Last Admin: 06/24/21 10:19 Dose: 1,000 mcg Documented by: Docusate Sodium (Docusate Sodium 100 Mg Cap) 100 mg PO BID [facility] Stop: 07/22/21 20:59 Last Admin: 06/24/21 10:19 Dose: 100 mg Documented by: Enoxaparin Sodium (Enoxaparin 100 Mg/1ml Syr) 90 mg SQ Q12H [facility] Stop: 07/23/21 06:59 Last Admin: 06/24/21 10:36 Dose: 90 mg Documented by: Furosemide (Furosemide 40 Mg Tab) [facility] [place] [facility] Stop: 07/23/21 08:59 Last Admin: 06/24/21 10:20 Dose: 40 mg Documented by: Ceftriaxone Sodium 2,000 mg/ (Dextrose) 70 mls @ 100 mls/hr IV Q24H [facility]; Protocol Stop: 06/30/21 08:59 Last Admin: 06/24/21 10:43 Dose: 100 mls/hr Documented by: Lisinopril (Lisinopril 20 Mg Tab) 20 mg PO [facility] Stop: 07/23/21 08:59 Last Admin: 06/24/21 10:20 Dose: 20 mg Documented by: Olanzapine (Olanzapine 10 Mg/2.1 Ml Sdv) 2.5 mg IM Q6H PRN PRN Reason: Agitation Stop: 07/23/21 05:14 Ondansetron HCl (Ondansetron Inj 2 Mg/Ml 2 Ml Vial) 4 mg IV Q6H PRN PRN Reason: Nausea Stop: 07/22/21 18:23 Pantoprazole Sodium (Pantoprazole 40 Mg Tab) 40 mg PO DAILY [facility] Stop: 07/22/21 18:59 Last Admin: 06/24/21 10:21 Dose: 40 mg Documented by: Polyethylene Glycol (Polyethylene (Miralax) 17 Gm Pack) 17 gm PO DAILY PRN PRN Reason: Constipation Stop: 07/22/21 18:23 Polyethylene Glycol (Polyethylene (Miralax) 17 Gm Pack) 17 gm PO DAILY [facility] Stop: 07/23/21 08:59 Last Admin: 06/24/21 10:22 Dose: 17 gm Documented by: Tamsulosin HCl (Tamsulosin Hcl 0.4 Mg Cap) 0.4 mg PO [facility] Stop: 07/23/21 08:59 Last Admin: 06/24/21 10:22 Dose: 0.4 mg Documented by: Vitamin D (Cholecalciferol 1,000 Units 25 Mcg Tab) 1,000 units PO MoWeFr@0900 [facility] Stop: 07/23/21 08:59 Last Admin: 06/23/21 08:54 Dose: 1,000 units Documented by: Zinc Sulfate (Zinc Sulfate 220 Mg Capsule) 220 mg PO [facility] Stop: 07/23/21 08:59 Last Admin: 06/24/21 11:21 Dose: 220 mg Documented by: (1) Cellulitis Laterality: unspecified laterality Site of cellulitis: extremity Site of cellulitis of extremity: lower extremity Qualified Code(s): L03.119 - Cellulitis of unspecified part of limb (2) Dementia Dementia behavioral disturbance: with behavioral disturbance Dementia type: vascular dementia Qualified Code(s): F01.51 - Vascular dementia with behavioral disturbance
--- NOTE | 2021-06-24 14:48 | XRay Report ---
KUB HISTORY: Generalized abdominal pain. COMPARISON: KUB 09/12/2007. FINDINGS: Prior cholecystectomy. Multiple dilated gas-filled loops of small and large bowel are seen throughout the abdomen. No gas identified within the rectum. No renal calculi. No ureteral calculi. N o pneumoperitoneum or pneumatosis. IMPRESSION: Multiple dilated gas-filled loops of large and small bowel seen throughout the abdomen. This suggests an ileus. A distal large bowel obstruction could also have a similar appearance but is considered le ss likely. ACT 112: Negative or not required by law. Electronically signed by: Cecil Zhao M.D. 06/24/2021 2:47 PM
[2021-06-24] MEDS: SODIUM CHLORIDE 0.9% 1000ML 1,000 ML IV SCH (15:55)
--- NOTE | 2021-06-25 08:28 | XRay Report ---
KUB HISTORY: Follow-up abdominal distention. ileus COMPARISON: KUB 06/14/2021. FINDINGS: Prior cholecystectomy. Multiple dilated gas-filled loops of small and large bowel are seen throughout the abdomen. No gas identified within the rectum. No renal calculi. No ureteral calculi. N o pneumoperitoneum or pneumatosis. IMPRESSION: No change in the multiple dilated gas-filled loops of large and small bowel seen throughout the abdom en. This suggests an ileus. A distal large bowel obstruction could also have a similar appearance but is considered less likely. ACT 112: Negative or not required by law. Electronically signed by: Cecil Zhao M.D. 06/25/2021 8:26 AM
[2021-06-25 08:33] LABS: BUN Creatinine Ratio 27.8 (10-20); Calcium 8.5 mg/dl (8.5-10.1); Creatinine Clr Calc Pharmacy 69.2 ml/min; Est GFR (African American) 93.5 ml/min; Est GFR (Non-African American) 80.6 ml/min; Magnesium 2.1 mg/dl (1.8-2.4); Potassium 3.6 mmol/L (3.5-5.1)
[2021-06-25] MEDS: SODIUM CHLORIDE 0.9% 1000ML 1,000 ML IV SCH ×2 (09:15→22:51)
[2021-06-25] MEDS: ENOXAPARIN 100 MG/1ML SYR SQ SCH ×2 (09:19→20:22)
[2021-06-25] MEDS ORDERED: POTASSIUM CHLORIDE CRTAB 20 MEQ TABCR PO STA (11:51)
--- NOTE | 2021-06-25 11:58 | Hospitalist Progress Note ---
Date of Service June 25, 2021 Assessment & Plan (1) AMS (altered mental status): (2) DVT (deep venous thrombosis): (3) Fall: (4) Cellulitis: (5) Abrasion: (6) BPH loc w urin obs/LUTS: (7) HTN (hypertension): (8) Dementia: (9) Total bilirubin, elevated: (10) Rhabdomyolysis: Plan: AMS/Fall Patient seen in ED on 06/21 for altered mental status and fall. Patient was diagnosed with bilateral lower extremity cellulitis and discharged home on cep halexin. Per admitting note: Per nurse at assisted living pt was started on Haloperidol 2.5mg qhs 3 weeks ago for agitation and combativeness. He is also taking quetiapine 50mg BID prn and lorazepam 0.5mg qhs prn. Head CT negative for acute findings. Haldol, quetiapine, lorazepam all on hold. Consider resuming quetiapine tomorrow. AMS possibly secondary to polypharmacy vs. metabolic encephalopathy from infection (cellulitis, possible bacteremia) Positive blood cultures 1/2 blood cultures from 06/21 growing coag negative staph, not lugdunensis ? Contaminant On IV ceftriaxone (day 2) Repeat blood cultures NGTD 48hrs Patient remains afebrile Ileus pt c/o abd pain, + loose large Bm 06/24 KUB: Ileus, repeat KUB unchaged on 06/25 downgrade diet to clears, avoid pain meds NSS 80cc/hr hold lasix for now, re assess daily when to resume he is on bowel regimen given no improvement will consult gen surg for their input Hypokalemia repleted give additional supplement today LLE DVT: Very likely provoked, per nurse due to haloperidol pt has been mostly sleeping Patient on therapeutic dose Lovenox will keep on lovenox for now given ileus will need to discuss with family warfarin vs eliquis B/L LE cellulitis: Patient with history of chronic lower extremity swelling and lymphedema lower extremities with chronic changes On IV ceftriaxone - will complete course and d/c, erythema has resolved, residual is likely chronic venous stasis change Elevated Tbili: US abd unremarkable Resolved HTN BP controlled, continue lisinopril, lasix on hold DVT prophylaxis - on therapeutic dose Lovenox Dispo - Pending. Not medically stable in setting of ileus. Likely discharge back to [facility] once medically stable. PT/OT. Admission and Anticipated Discharge Date Admission Date: June 22, 2021 Supervising Physician Co-Signing Physician Notes 86-year-old male with history of hypertension, HLD, dementia, diverticulitis, colon resection, CKD stage III, BPH, insomnia, BLE lymphedema, AVM of colon was brought in from assisted living 06/22 after fall and altered mentation. Patient was recently started on haloperidol in the assisted living for agitation and combativeness which could have contributed to his fall leading to rhabdom yolysis. Patient is also getting treatment for cellulitis with Rocephin. At bedside exam, patient mumbles and it is hard to understand what he is trying to say. He is oriented to self. LLE has some mild ? erythema upon examination, trace edema BLE. Seems like he has tenderness on abdomen palpation, patient does not verbalizes so. Tinkling abdominal sounds on auscultation. Heart, lungs were WNL. X-ray KUB suggestive of ileus, patient moving watery stool, no improvement in x-ray KUB since yesterday, surgical consult and C. difficile. I have seen and examined the patient and have discussed the case with the provider above. I agree with the assessment and plan as stated. Subjective Patient was seen and examined in room 383-2. Follow-up altered mental status. Patient unable provide meaningful history given dementia hx. Nurse reports pt c/o abd pain. Also reports difficulty with swallowing clears and he coughs. No BM today. ROS unable to obtain. Review of Systems Review of Systems: All systems reviewed & are unremarkable except as noted in HPI & below Physical Exam Physical Exam: Gen: resting comfortably in bed, NAD, WD/WN HEENT: Normocephalic, atraumatic, conjunctivae moist, sclerae anicteric, mucous membranes dry Lung: Clear to Auscultation bilaterally, no wheezes/rales/rhonchi Heart: Regular rate, regular rhythm, no murmurs, rubs, or gallops Abdomen: distended abd, Soft, pt does not grimace when I palpate, high tinkling +BS x 4 Extremities: No edema, venous stasis b/l no warmth Skin: Warm, no rash, negative turgor. Results & Data Results & Data ([facility]) Vital Signs (Past 12 Hours) Vital Signs Temp Pulse Resp BP Pulse Ox 06/25/21 08:29 37 C 76 12 152/84 H 97 Laboratory Results [facility] 06/25/21 07:55 Sodium 142 Potassium 3.6 D Chloride 108 H Carbon Dioxide 28 BUN 23 H Creatinine 0.82 Glucose 118 H Calcium 8.5 Cardiac Enzymes 06/25/21 Range/Units 07:55 Total Creatine Kinase 496 H (39-308) U/L Diagnostic Findings KUB X-Ray 06/25/21 08:00 KUB HISTORY: Follow-up abdominal distention. ileus COMPARISON: KUB 06/14/2021. FINDINGS: Prior cholecystectomy. Multiple dilated gas-filled loops of small and large bowel are seen throughout the abdomen. No gas identified within the rect um. No renal calculi. No ureteral calculi. No pneumoperitoneum or pneumatosis. IMPRESSION: No change in the multiple dilated gas-filled loops of large and small bowel seen throughout the abdomen. This suggests an ileus. A distal large bowel obstruction could also have a similar appearance but is considered less likely. ACT 112: Negative or not required by law. Electronically signed by: Cecil Zhao M.D. 06/25/2021 8:26 AM Medications Administered Current Inpatient Medications Acetaminophen (Acetaminophen 325 Mg Tab) 650 mg PO Q4H PRN PRN Reason: pain/fever Stop: 07/22/21 18:23 Atorvastatin Calcium (Atorvastatin 20 Mg Tab) [facility] [place]: 07/23/21 08:59 Last Admin: 06/24/21 10:18 Dose: 20 mg Documented by: Cyanocobalamin (Cyanocobalamin 500 Mcg Tablet (Vitamin B-12)) 1,000 mcg PO QAM [facility] Stop: 07/23/21 08:59 Last Admin: 06/24/21 10:19 Dose: 1,000 mcg Documented by: Docusate Sodium (Docusate Sodium 100 Mg Cap) 100 mg PO BID [facility] Stop: 07/22/21 20:59 Last Admin: 06/24/21 20:34 Dose: 100 mg Documented by: Enoxaparin Sodium (Enoxaparin 100 Mg/1ml Syr) 90 mg SQ Q12H [facility] Stop: 07/23/21 06:59 Last Admin: 06/25/21 09:19 Dose: 90 mg Documented by: Furosemide (Furosemide 40 Mg Tab) 40 mg PO QAM [facility] Stop: 07/23/21 08:59 Last Admin: 06/24/21 10:20 Dose: 40 mg Documented by: Ceftriaxone Sodium 2,000 mg/ (Dextrose) 70 mls @ 100 mls/hr IV Q24H [facility]; Protocol Stop: 06/30/21 08:59 Last Infusion: 06/24/21 19:18 Dose: Infused Documented by: Sodium Chloride (Nss 1000ml) 1,000 mls @ 80 mls/hr IV .[id number] [facility] Stop: 07/24/21 15:29 Last Admin: 06/25/21 09:15 Dose: 80 mls/hr Documented by: Lisinopril (Lisinopril 20 Mg Tab) 20 mg PO QAM [facility] Stop: 07/23/21 08:59 Last Admin: 06/24/21 10:20 Dose: 20 mg Documented by: Olanzapine (Olanzapine 10 Mg/2.1 Ml Sdv) 2.5 mg IM Q6H PRN PRN Reason: Agitation Stop: 07/23/21 05:14 Ondansetron HCl (Ondansetron Inj 2 Mg/Ml 2 Ml Vial) 4 mg IV Q6H PRN PRN Reason: Nausea Stop: 07/22/21 18:23 Pantoprazole Sodium (Pantoprazole 40 Mg Tab) 40 mg PO DAILY [facility] Stop: 07/22/21 18:59 Last Admin: 06/24/21 10:21 Dose: 40 mg Documented by: Polyethylene Glycol (Polyethylene (Miralax) 17 Gm Pack) 17 gm PO DAILY PRN PRN Reason: Constipation Stop: 07/22/21 18:23 Polyethylene Glycol (Polyethylene (Miralax) 17 Gm Pack) 17 gm PO DAILY [facility] Stop: 07/23/21 08:59 Last Admin: 06/24/21 10:22 Dose: 17 gm Documented by: Tamsulosin HCl (Tamsulosin Hcl 0.4 Mg Cap) 0.4 mg PO QAM [facility] Stop: 07/23/21 08:59 Last Admin: 06/24/21 10:22 Dose: 0.4 mg Documented by: Vitamin D (Cholecalciferol 1,000 Units 25 Mcg Tab) 1,000 units PO MoWeFr@0900 [facility] Stop: 07/23/21 08:59 Last Admin: 12/15/21 08:54 Dose: 1,000 units Documented by: Zinc Sulfate (Zinc Sulfate 220 Mg Capsule) 220 mg PO QAM [facility] Stop: 07/23/21 08:59 Last Admin: 06/24/21 11:21 Dose: 220 mg Documented by: (1) Cellulitis Laterality: unspecified laterality Site of cellulitis: extremity Site of cellulitis of extremity: lower extremity Qualified Code(s): L03.119 - Cellulitis of unspecified part of limb (2) Dementia Dementia behavioral disturbance: with behavioral disturbance Dementia type: vascular dementia Qualified Code(s): F01.51 - Vascular dementia with behavioral disturbance
[2021-06-25] MEDS: ATORVASTATIN 20 MG TAB PO SCH (12:59)
[2021-06-25] MEDS: CYANOCOBALAMIN 500 MCG TABLET (VITAMIN B-12) PO SCH (13:00)
[2021-06-25] MEDS: CHOLECALCIFEROL 1,000 UNITS 25 MCG TAB PO SCH (13:00)
[2021-06-25] MEDS: lisinopril 20 MG TAB PO SCH (13:01)
[2021-06-25] MEDS: DOCUSATE SODIUM 100 MG CAP PO SCH ×2 (13:01→20:22)
[2021-06-25] MEDS: PANTOprazole 40 MG TAB PO SCH (13:02)
[2021-06-25] MEDS: POLYETHYLENE (MIRALAX) 17 GM PACK PO SCH (13:02)
[2021-06-25] MEDS: ZINC SULFATE 220 MG CAPSULE PO SCH (13:03)
[2021-06-25] MEDS: cefTRIAXone SODIUM 2,000 MG in DEXTROSE 5% 50 ML IV SCH (13:19)
[2021-06-25] MEDS: TAMSULOSIN HCL 0.4 MG CAP PO SCH (13:29)
--- NOTE | 2021-06-25 16:12 | Surgery Consultation ---
Date of Consultation June 25, 2021 Assessment & Plan (1) Ileus: No acute exam findings. Agree with medical eval and management Potassium now corrected C. diff pending tolerating liquids will start Dulcolax supp in AM KUB in AM, if not improving consider CT with po contrast Supervising Physician Co-Signing Physician Notes Patient seen and examined, labs and imaging reviewed, agree with above. 86-year-old pleasantly demented male admitted with fall. Over hospital course during past several days he developed abdominal distention and complained of pain. He has had multiple loose bowel movements. Prior partial colectomy. KUB over the past 2 days showed dilated air filled loops of small bowel and colon. Likely ileus, could not exclude large bowel obstruction. On exam he is afebrile stable vitals. Abdomen soft, distended, nontender. Tympanic to percussion. Resolving hypokalemia on his labs. KUB personally reviewed and interpreted and shows what appears to be [place] syndrome. No surgical intervention at this time Follow-up C. difficile Repeat KUB in morning May need rectal suppository or enemas for rectal stimulation If no improvement would recommend CT abdomen pelvis with oral and IV contrast History of Present Illness Attending Physician: Taryn Garcia MD History of Present Illness 86 y/o male resident of [facility] with dementia recently seen on 06/21 for lower extremity cellulitis and fall then admitted 06/22 for abdominal pain. Patient is not able to offer reliable history. His son is present. Allergies Allergy/AdvReac Type Severity Reaction Status Date / Time No Known Allergies Allergy Mild Verified 05/17/21 17:19 Home Medications Medication Instructions Recorded Confirmed Type atorvastatin 20 mg tablet 20 mg PO QAM 11/27/19 06/22/21 History lisinopril 20 mg tablet 20 mg PO QAM 11/27/19 06/22/21 History tamsulosin 0.4 mg capsule 0.4 mg PO QAM 11/27/19 06/22/21 History acetaminophen 325 mg tablet 650 mg PO Q6 PRN MDD 3g 10/20/20 06/22/21 History cholecalciferol (vitamin D3) 25 25 mcg PO 3XWK 10/20/20 06/22/21 History mcg (1,000 unit) capsule (Vitamin D3) cyanocobalamin (vitamin B-12) 1,000 mcg PO QAM 10/20/20 06/22/21 History 1,000 mcg tablet (Vitamin B-12) furosemide 40 mg tablet 40 mg PO QAM 10/20/20 06/22/21 History lorazepam 0.5 mg tablet 0.5 mg PO DAILY PRN 10/20/20 06/22/21 History quetiapine 50 mg tablet 50 mg PO BID PRN 10/20/20 06/22/21 History vitamin A 10,000 unit capsule 10,000 unit PO QAM 10/20/20 06/22/21 History polyethylene glycol 3350 17 gram 17 g PO DAILY 03/18/21 06/22/21 History oral powder packet (Miralax) Triam 0.1%Cr/Lubriderm Lo 1 applic TOPICAL BID 05/17/21 06/22/21 History zinc sulfate 220 mg capsule 220 mg PO QAM 05/17/21 06/22/21 History cephalexin 500 mg capsule 500 mg PO Q6H 7 Days #28 cap 06/21/21 06/22/21 Rx docusate sodium 100 mg capsule 100 mg PO BID 06/21/21 06/22/21 History (Colace) haloperidol 0.5 mg tablet 0.5 mg PO DAILY 06/21/21 06/22/21 History haloperidol 2 mg tablet 2 mg PO DAILY 06/21/21 06/22/21 History Patient History Medical History Diverticulitis Hypertensive kidney disease Rhinitis Surgical History History of appendectomy S/P colon resection Social History Smoking Status: Unknown if ever smoked Second Hand Exposure: No; Do You Dip or Chew Tobacco: No; Tobacco Cessation Education Requested by Patient: No Hx Alcohol Use: No Hx Substance Use: No Preferred Language: Albanian Communication Ability: Effective Communication Ability Comment: patient confused, follows some commands Internal Audit Consultant Required: No Beliefs That Will Affect Care: None Current Living Situation: Personal Care Facility Feels Safe at Home: Yes Assistive Devices: Walker Assistive Devices Comment: patient cognitively impaired, unable to verbalize Review of Systems Review of Systems: Unobtainable due to cognitive status Physical Exam Constitutional: well developed and well nourished; no acute distress and not in distress Gastrointestinal (Abdomen): Inspection/Auscultation: + abdomen distended and + abdominal surgical scar (midline, RLQ) Percussion/Palpation: abdomen soft; abdomen nontender Results & Data ([facility]) Vital Signs (Past 12 Hours) Vital Signs Temp Pulse Resp BP Pulse Ox 06/25/21 15:02 37 C 77 12 144/86 H 93 06/25/21 08:29 37 C 76 12 152/84 H 97 PG Care Time/CCT Total # of Minutes Spent Total Time Spent with Patient: Total time spent is greater than 50% in coordination of care (as documented) at patient's floor/unit and/or counseling patient: Coding Level of Care Code 35277 Initial Inpt Care Lvl 1 Diagnoses Ileus K56.7
[2021-06-25] MEDS: SACCHAROMYCES BOULARDII 250 MG CAP PO SCH (18:18)
[2021-06-26] MEDS: ENOXAPARIN 100 MG/1ML SYR SQ SCH ×2 (06:08→18:27)
[2021-06-26 06:55] LABS: Hematocrit (blood only) 36.2 % (42-52); Hemoglobin 11.8 g/dL (14.0-18.0); Mean Corpuscular Hemoglobin 30.9 pg (25-34); Mean Corpuscular Hgb Conc 32.6 g/dL (32-36); Mean Corpuscular Volume 94.8 fL (80-100); Platelet Count 264 K/uL (130-400); RDW Coefficient of Variation 13.2 % (11.5-14.5); RDW Standard Deviation 45.9 fL (36.4-46.3); Red Blood Count 3.82 M/uL (4.7-6.1); White Blood Count 14.31 K/uL (4.8-10.8)
[2021-06-26 07:17] LABS: BUN Creatinine Ratio 37.6 (10-20); Calcium 8.5 mg/dl (8.5-10.1); Creatinine Clr Calc Pharmacy 83.4 ml/min; Est GFR (African American) 100.9 ml/min; Est GFR (Non-African American) 87.1 ml/min; Potassium 3.4 mmol/L (3.5-5.1)
--- NOTE | 2021-06-26 07:18 | XRay Report ---
KUB CLINICAL HISTORY: Ileus. FINDINGS: 2 AP, portable, supine abdominal radiographs are compared to study dated 06/25/2021 and cor related with abdominal CT dated 11/06/2020. Cholecystectomy clips are noted in the right upper quadran t. Distended and gas-filled loops of small bowel and colon are similar to yesterday. No evidence of i ntraperitoneal free air is seen on these supine images. Phleboliths are noted in the pelvis. The skel etal structures are osteopenic and appear intact. There is moderate lumbosacral spondylosis. IMPRESSION: Unchanged appearance of distended and gas-filled loops of small bowel and colon as compar ed to yesterday. The appearance favors ileus. Colonic obstruction is considered less likely but could appear similar. Follow-up to resolution is recommended. Electronically signed by: Silver Robert M.D. 06/26/2021 7:17 AM
[2021-06-26] MEDS: ATORVASTATIN 20 MG TAB PO SCH ×2 (08:54→11:45)
[2021-06-26] MEDS: lisinopril 20 MG TAB PO SCH ×2 (08:55→11:44)
[2021-06-26] MEDS: CYANOCOBALAMIN 500 MCG TABLET (VITAMIN B-12) PO SCH ×2 (08:56→11:44)
[2021-06-26] MEDS: SACCHAROMYCES BOULARDII 250 MG CAP PO SCH ×2 (08:57→11:45)
[2021-06-26] MEDS: ZINC SULFATE 220 MG CAPSULE PO SCH ×2 (08:57→11:45)
[2021-06-26] MEDS: PANTOprazole 40 MG TAB PO SCH ×2 (08:57→11:45)
[2021-06-26] MEDS: POLYETHYLENE (MIRALAX) 17 GM PACK PO SCH ×2 (08:57→12:34)
[2021-06-26] MEDS: TAMSULOSIN HCL 0.4 MG CAP PO SCH ×2 (08:57→11:45)
[2021-06-26] MEDS: DOCUSATE SODIUM 100 MG CAP PO SCH ×3 (08:58→20:33)
[2021-06-26] MEDS: cefTRIAXone SODIUM 2,000 MG in DEXTROSE 5% 50 ML IV SCH (09:02)
[2021-06-26] MEDS: bisacodyL 10 MG SUPP PR SCH ×2 (09:02→11:44)
[2021-06-26] MEDS ORDERED: POTASSIUM CHLORIDE CRTAB 20 MEQ TABCR PO STA (09:21)
[2021-06-26] MEDS: SODIUM CHLORIDE 0.9% 1000ML 1,000 ML IV SCH ×2 (11:19→20:33)
--- NOTE | 2021-06-26 12:07 | Surgery Progress Note ---
Date of Service June 26, 2021 Assessment & Plan (1) Ileus: Plan: Patient appears to be doing about the same as yesterday KUB this AM read as unchanged distended and gas filled loops of small bowel & colon favoring ileus Ordered for a CT a/p with oral/IV contrast this AM, will follow up on results Loose stools documented from 06/25. Cdiff ordered to be collected when able No plans for surgical intervention at this time Admission and Anticipated Discharge Date Admission Date: June 22, 2021 Supervising Physician Co-Signing Physician Notes Patient seen and examined, agree with above. Admitted for altered mental status and fall, developed ileus during stay. Multiple loose bowel movements per report. Abdomen distended, soft, nontender. Poor historian. KUB with persistent ileus. CT ordered, patient has been refusing oral contrast. No surgical intervention, may benefit from rectal stimulation with enemas or suppositories. Surgery will follow. Subjective Patient talking, but hard to comprehend what he is saying. Does have history of dementia. Denies belly pain when asked. Physical Exam Physical Exam: awake Gastrointestinal (Abdomen): Inspection/Auscultation: + abdomen distended Percussion/Palpation: abdomen nontender Results & Data ([facility]) Vital Signs (Past 12 Hours) Vital Signs Temp Pulse Resp BP Pulse Ox 06/26/21 07:20 36.6 C 82 16 130/45 L 97 PG Care Time/CCT Total # of Minutes Spent Total Time Spent with Patient: Total time spent is greater than 50% in coordination of care (as documented) at patient's floor/unit and/or counseling patient: Coding Level of Care Code 92826 Subseq Hosp Care Lvl 1 Diagnoses Ileus K56.7
--- NOTE | 2021-06-26 18:58 | Hospitalist Progress Note ---
Date of Service June 26, 2021 Assessment & Plan (1) AMS (altered mental status): (2) DVT (deep venous thrombosis): (3) Fall: (4) Cellulitis: (5) Abrasion: (6) BPH loc w urin obs/LUTS: (7) HTN (hypertension): (8) Dementia: (9) Total bilirubin, elevated: (10) Rhabdomyolysis: Plan: AMS/Fall Patient seen in ED on 06/21 for altered mental status and fall. Patient was diagnosed with bilateral lower extremity cellulitis and discharged home on cep halexin. Per admitting note: Per nurse at assisted living pt was started on Haloperidol 2.5mg qhs 3 weeks ago for agitation and combativeness. He is also taking quetiapine 50mg BID prn and lorazepam 0.5mg qhs prn. Head CT negative for acute findings. Haldol, quetiapine, lorazepam all on hold. Consider resuming quetiapine tomorrow. AMS possibly secondary to polypharmacy vs. metabolic encephalopathy from infection (cellulitis, possible bacteremia) Positive blood cultures 1/2 blood cultures from 06/21 growing coag negative staph, not lugdunensis ? Contaminant On IV ceftriaxone (day 2) Repeat blood cultures NGTD 48hrs Patient remains afebrile Ileus pt c/o abd pain, + loose large Bm 06/24 KUB: Ileus, repeat KUB unchaged on 06/25 downgrade diet to clears, avoid pain meds NSS 80cc/hr hold lasix for now, re assess daily when to resume he is on bowel regimen Surgery on board, recommending conservative management CT abdomen pelvis ordered, patient uncooperative with oral contrast per RN. Hypokalemia Monitor replete. LLE DVT: Very likely provoked, per nurse due to haloperidol pt has been mostly sleeping Patient on therapeutic dose Lovenox will keep on lovenox for now given ileus will need to discuss with family warfarin vs eliquis B/L LE cellulitis: Patient with history of chronic lower extremity swelling and lymphedema lower extremities with chronic changes On IV ceftriaxone - will complete course and d/c, erythema has resolved, re sidual is likely chronic venous stasis change Elevated Tbili: US abd unremarkable Resolved HTN BP controlled, continue lisinopril, lasix on hold DVT prophylaxis - on therapeutic dose Lovenox Dispo - Pending. Not medically stable in setting of ileus. Likely discharge back to [facility] once medically stable. PT/OT. Admission and Anticipated Discharge Date Admission Date: June 22, 2021 Subjective Patient was lying semiupright in bed, on room air, NAD, AO x1 [to time], fairly easier to understand today, noncooperative per RN for his medications and oral contrast for CT abdomen pelvis ordered. Patient denies any pain. Other review of symptoms were difficult to take because of his dementia/cognition status. Physical Exam Physical Exam: GENERAL: Alert and oriented x1. NAD, on RA. HEENT: No pallor, no icterus. Pupils equal, round and reactive to light. Oral mucosa moist. NECK: No JVD, no neck masses. HEART: S1 and S2 heard. Regular rate and rhythm. No murmur, no gallop. RESPIRATORY SYSTEM: Normal AP diameter. No accessory muscle use. No wheezing, no crackles. ABDOMEN: Soft, bowel sounds decreased, tense but nontender, no distention. CENTRAL NERVOUS SYSTEM: No facial droop. Speech is better today. N/A due to cognition status. EXTREMITIES: No edema, BLE chronic skin changes. Results & Data Results & Data ([facility]) Vital Signs (Past 12 Hours) Vital Signs Temp Pulse Resp BP Pulse Ox 06/26/21 15:11 37.2 C 89 16 160/87 H 97 06/26/21 07:20 36.6 C 82 16 130/45 L 97 (1) Cellulitis Laterality: unspecified laterality Site of cellulitis: extremity Site of cellulitis of extremity: lower extremity Qualified Code(s): L03.119 - Cellulitis of unspecified part of limb (2) Dementia Dementia behavioral disturbance: with behavioral disturbance Dementia type: vascular dementia Qualified Code(s): F01.51 - Vascular dementia with behavioral disturbance
[2021-06-26] MEDS ORDERED: PNEUMOCOCCAL Polysaccharide Vaccine 25mcg/0.5mL vial/Syr IM ONE (21:00)
[2021-06-26] MEDS ORDERED: Flu Vaccine-High Dose (Fluzone-HD) PF 65+ 0.7mL SYR IM ONE (21:00)
[2021-06-27] MEDS: SODIUM CHLORIDE 0.9% 1000ML 1,000 ML IV SCH ×3 (00:06→19:19)
[2021-06-27] MEDS: ENOXAPARIN 100 MG/1ML SYR SQ SCH ×2 (06:19→19:50)
--- NOTE | 2021-06-27 10:52 | Surgery Progress Note ---
Date of Service June 27, 2021 Assessment & Plan (1) Ileus: Plan: laps pending exam remains benign refusing diet and contrast consider CT with IV contrast only vs KUB in AM seen with Dr. Munoz Admission and Anticipated Discharge Date Admission Date: June 22, 2021 Supervising Physician Co-Signing Physician Notes Patient seen and examined, agree with above. Admitted for altered mental status and fall, developed ileus during stay. Multiple loose bowel movements continue Abdomen distended, soft, nontender. Poor historian. Consider CT with IV contrast only given patient refusing oral. Unlikely to be obstruction. Surgery will follow. Subjective no complaints, continues to have liquid BMs Physical Exam Gastrointestinal (Abdomen): Inspection/Auscultation: + abdomen distended (similar) Percussion/Palpation: abdomen soft; abdomen nontender Results & Data ([facility]) Vital Signs (Past 12 Hours) Vital Signs Temp Pulse Resp BP Pulse Ox 06/27/21 07:16 36.6 C 87 16 145/75 H 93 PG Care Time/CCT Total # of Minutes Spent Total Time Spent with Patient: Total time spent is greater than 50% in coordination of care (as documented) at patient's floor/unit and/or counseling patient: Coding Level of Care Code 09215 Subseq Hosp Care Lvl 1 Diagnoses Ileus K56.7
[2021-06-27] MEDS: DOCUSATE SODIUM 100 MG CAP PO SCH ×2 (10:54→20:52)
[2021-06-27] MEDS: ATORVASTATIN 20 MG TAB PO SCH (10:54)
[2021-06-27] MEDS: lisinopril 20 MG TAB PO SCH (10:54)
[2021-06-27] MEDS: PANTOprazole 40 MG TAB PO SCH (10:54)
[2021-06-27] MEDS: bisacodyL 10 MG SUPP PR SCH (10:54)
[2021-06-27] MEDS: CYANOCOBALAMIN 500 MCG TABLET (VITAMIN B-12) PO SCH (10:54)
[2021-06-27] MEDS: POLYETHYLENE (MIRALAX) 17 GM PACK PO SCH (10:55)
[2021-06-27] MEDS: SACCHAROMYCES BOULARDII 250 MG CAP PO SCH (10:55)
[2021-06-27] MEDS: TAMSULOSIN HCL 0.4 MG CAP PO SCH (10:55)
[2021-06-27] MEDS: ZINC SULFATE 220 MG CAPSULE PO SCH (10:55)
[2021-06-27] MEDS: cefTRIAXone SODIUM 2,000 MG in DEXTROSE 5% 50 ML IV SCH (10:59)
[2021-06-27 11:40] LABS: BUN Creatinine Ratio 41.7 (10-20); Calcium 8.2 mg/dl (8.5-10.1); Creatinine Clr Calc Pharmacy 84.6 ml/min; Est GFR (African American) 101.5 ml/min; Est GFR (Non-African American) 87.6 ml/min; Potassium 2.8 mmol/L (3.5-5.1)
[2021-06-27] MEDS ORDERED: OPTIRAY 320 100ml IV ONE (13:53)
[2021-06-27 14:21] LABS: Hematocrit (blood only) 31.4 % (42-52); Hemoglobin 10.3 g/dL (14.0-18.0); Mean Corpuscular Hemoglobin 31.4 pg (25-34); Mean Corpuscular Hgb Conc 32.8 g/dL (32-36); Mean Corpuscular Volume 95.7 fL (80-100); Mean Platelet Volume 10.6 fL (7.4-10.4); Platelet Count 259 K/uL (130-400); RDW Coefficient of Variation 13.6 % (11.5-14.5); RDW Standard Deviation 47.3 fL (36.4-46.3); Red Blood Count 3.28 M/uL (4.7-6.1); White Blood Count 10.58 K/uL (4.8-10.8)
--- NOTE | 2021-06-27 14:37 | CT Scan Report ---
ABDOMEN AND PELVIS CT WITH IV CONTRAST CT DOSE: 1146.92 mGy.cm HISTORY: Acute generalized abdominal pain with reported ileus ileus TECHNIQUE: Multiaxial CT images of the abdomen and pelvis were performed following the IV administrat ion of 95 cc of Optiray, A dose lowering technique was utilized adhering to the principles of ALARA. COMPARISON STUDY: KUB 06/26/2021 and 06/24/2021, CT abdomen and pelvis 11/06/2020 FINDINGS: Limited study secondary to patient body habitus and upper extremity positioning. Small pleural effusions with mild dependent subsegmental bibasilar atelectasis. There is no pneumatos is or pneumoperitoneum. The spleen, moderately atrophic pancreas, and adrenal glands are unremarkable . Mild marginal nodularity of the liver redemonstrated suspicious for cirrhosis. Cholecystectomy. 4 m m nonobstructing calculus of the inferior pole right kidney. Symmetric enhancement of the kidneys wit hout ureteral calculi or hydronephrosis. Prostamegaly. Mild urinary bladder wall thickening endotrach eal and with several small diverticula. Atherosclerosis of the aorta without aneurysm. No adenopathy. Prior partial sigmoid colon resection with colocolonic anastomosis. Large and small bowel distention with associated air-fluid levels. This extends to the anorectal junction without obstructing lesion i dentified. Mild wall thickening is noted involving loops of ileum within the abdominal right lower qu adrant. The appendix is not identified. Trace abdominal pelvic ascites. Acute retroperitoneal hematom a with hemorrhage involving the bilateral psoas, right iliacus and iliopsoas muscles. Hemorrhage with in the right retroperitoneum measures up to approximately 30 cm in length and on the left measures up to at least 23 cm in length. No acute fracture. Degenerative changes of the spine, pelvis and hips. IMPRESSION: 1. Moderate acute retroperitoneal hemorrhage involves the bilateral psoas, right iliacus and right il iopsoas muscles. 2. Dilated air and fluid-filled loops of large and small bowel redemonstrated suggestive of ileus. 3. Wall thickening involving several loops of ileum which may be secondary to fluid overload versus a nonspecific enteritis. 4. Cirrhosis with small pleural effusions, trace abdominopelvic ascites with mild body wall edema. 5. Prostamegaly with chronic bladder outlet obstruction. 6. Additional findings as above. ACT 112: Negative or not required by law. The above report was generated using voice recognition software. It may contain grammatical, syntax o r spelling errors. Electronically signed by: Ron Palma M.D. 06/27/2021 2:36 PM
--- NOTE | 2021-06-27 19:28 | Hospitalist Progress Note ---
Date of Service June 27, 2021 Assessment & Plan (1) AMS (altered mental status): (2) DVT (deep venous thrombosis): (3) Fall: (4) Cellulitis: (5) Abrasion: (6) BPH loc w urin obs/LUTS: (7) HTN (hypertension): (8) Dementia: (9) Total bilirubin, elevated: (10) Rhabdomyolysis: Plan: AMS/Fall Patient seen in ED on 06/21 for altered mental status and fall. Patient was diagnosed with bilateral lower extremity cellulitis and discharged home on cep halexin. Per admitting note: Per nurse at assisted living pt was started on Haloperidol 2.5mg qhs 3 weeks ago for agitation and combativeness. He is also taking quetiapine 50mg BID prn and lorazepam 0.5mg qhs prn. Head CT negative for acute findings. Haldol, quetiapine, lorazepam all on hold. Consider resuming quetiapine tomorrow. AMS possibly secondary to polypharmacy vs. metabolic encephalopathy from infection (cellulitis, possible bacteremia) Positive blood cultures 1/2 blood cultures from 06/21 growing coag negative staph, not lugdunensis ? Contaminant On IV ceftriaxone Repeat blood cultures NGTD 48hrs Patient remains afebrile Ileus pt c/o abd pain, + loose large Bm 06/24 KUB: Ileus, repeat KUB unchaged on 06/25 downgrade diet to clears, avoid pain meds NSS 80cc/hr hold lasix for now, re assess daily when to resume he is on bowel regimen Surgery on board, recommending conservative management CT abdomen pelvis ordered -- getting w/ iv contrast only, pt not cooperative with oral con Hypokalemia Monitor replete. LLE DVT: Very likely provoked, per nurse due to haloperidol pt has been mostly sleeping Patient on therapeutic dose Lovenox will keep on lovenox for now given ileus will need to discuss with family warfarin vs eliquis B/L LE cellulitis: Patient with history of chronic lower extremity swelling and lymphedema lower extremities with chronic changes On IV ceftriaxone - will complete course and d/c, erythema has resolved, residual is likely chronic venous stasis change Elevated Tbili: US abd unremarkable Resolved HTN BP controlled, continue lisinopril, lasix on hold DVT prophylaxis - on therapeutic dose Lovenox Dispo - Pending. Not medically stable in setting of ileus. Likely discharge back to [facility] once medically stable. PT/OT. Admission and Anticipated Discharge Date Admission Date: June 22, 2021 Subjective Patient lying in bed, on room air, more confused today with mumbling and difficult to comprehend. ROS not accessible. Per RN patient is not cooperating with his medication. Also patient is incontinent of bowel and bladder. C diff done today was negative. Physical Exam Physical Exam: GENERAL: Confused. NAD, on RA. HEENT: No pallor, no icterus. Pupils equal, round and reactive to light. Oral mucosa moist. NECK: No JVD, no neck masses. HEART: S1 and S2 heard. Regular rate and rhythm. No murmur, no gallop. RESPIRATORY SYSTEM: Normal AP diameter. No accessory muscle use. No wheezing, no crackles. ABDOMEN: Soft, bowel sounds decreased, tense but nontender, no distention. CENTRAL NERVOUS SYSTEM: No facial droop. Speech is better today. N/A due to cognition status. EXTREMITIES: No edema, BLE chronic skin changes. Results & Data Results & Data ([facility]) Vital Signs (Past 12 Hours) Vital Signs Temp Pulse Resp BP Pulse Ox 06/27/21 16:09 36.6 C 96 H 16 132/69 95 (1) Cellulitis Laterality: unspecified laterality Site of cellulitis: extremity Site of cellulitis of extremity: lower extremity Qualified Code(s): L03.119 - Cellulitis of unspecified part of limb (2) Dementia Dementia behavioral disturbance: with behavioral disturbance Dementia type: vascular dementia Qualified Code(s): F01.51 - Vascular dementia with behavioral disturbance
[2021-06-27] MEDS ORDERED: POTASSIUM CHLORIDE CRTAB 20 MEQ TABCR PO STA (19:35)
[2021-06-27] MEDS: D5W AND 1/2NSS 1,000 ML IV SCH (19:49)
[2021-06-27] MEDS: POTASSIUM CHLORIDE / WTR 10 MEQ/100 ML PLCT IV SCH ×4 (19:56→23:27)
[2021-06-28 06:34] LABS: Hematocrit (blood only) 29.6 % (42-52); Hemoglobin 9.6 g/dL (14.0-18.0); Mean Corpuscular Hemoglobin 31.2 pg (25-34); Mean Corpuscular Hgb Conc 32.4 g/dL (32-36); Mean Corpuscular Volume 96.1 fL (80-100); Mean Platelet Volume 10.2 fL (7.4-10.4); Nucleated RBC # (auto) 0.03 K/uL (0-0); Nucleated RBC % (auto) 0.3 %; Platelet Count 289 K/uL (130-400); RDW Standard Deviation 48.3 fL (36.4-46.3); Red Blood Count 3.08 M/uL (4.7-6.1); White Blood Count 10.26 K/uL (4.8-10.8)
[2021-06-28 07:03] LABS: BUN Creatinine Ratio 36.4 (10-20); Creatinine Clr Calc Pharmacy 91.5 ml/min; Est GFR (African American) 104.8 ml/min; Est GFR (Non-African American) 90.5 ml/min; Potassium 3.1 mmol/L (3.5-5.1)
[2021-06-28] MEDS: D5W AND 1/2NSS 1,000 ML IV SCH ×2 (08:48→22:32)
[2021-06-28] MEDS: ATORVASTATIN 20 MG TAB PO SCH (09:41)
[2021-06-28] MEDS: bisacodyL 10 MG SUPP PR SCH (09:41)
[2021-06-28] MEDS: CYANOCOBALAMIN 500 MCG TABLET (VITAMIN B-12) PO SCH (09:42)
[2021-06-28] MEDS: CHOLECALCIFEROL 1,000 UNITS 25 MCG TAB PO SCH (09:42)
[2021-06-28] MEDS: ZINC SULFATE 220 MG CAPSULE PO SCH (09:42)
[2021-06-28] MEDS: DOCUSATE SODIUM 100 MG CAP PO SCH ×2 (09:42→20:58)
[2021-06-28] MEDS: lisinopril 20 MG TAB PO SCH (09:42)
[2021-06-28] MEDS: TAMSULOSIN HCL 0.4 MG CAP PO SCH (09:42)
[2021-06-28] MEDS: POLYETHYLENE (MIRALAX) 17 GM PACK PO SCH (09:42)
[2021-06-28] MEDS: PANTOprazole 40 MG TAB PO SCH (09:42)
[2021-06-28] MEDS: SACCHAROMYCES BOULARDII 250 MG CAP PO SCH (09:42)
--- NOTE | 2021-06-28 10:19 | Fluoroscopy Report ---
FL video swallow CLINICAL HISTORY: 86 years-old Male with r/o aspiration. Acute dysphasia TECHNIQUE: Video fluoroscopic evaluation of swallowing was performed in the AP and lateral projection s by the speech pathology staff. The patient is fed thin liquid, nectar thick and honey thick consist ency liquids. FLUOROSCOPY TIME: 0.5 minutes. COMPARISON STUDY: CT abdomen and pelvis 06/27/2021 FINDINGS: There is normal hyoid excursion and epiglottic deflection. No significant penetration or as piration identified. Swallowing function is within normal limits. The patient was reportedly noncompl iant throughout the study. IMPRESSION: 1. No aspiration identified. 2. Please see the speech pathologist report for detailed findings and recommendations. ACT 112: Negative or not required by law. Electronically signed by: Ron Palma M.D. 06/28/2021 10:17 AM
[2021-06-28] MEDS: cefTRIAXone SODIUM 2,000 MG in DEXTROSE 5% 50 ML IV SCH (11:16)
--- NOTE | 2021-06-28 13:00 | Surgery Progress Note ---
Date of Service June 28, 2021 Assessment & Plan (1) Ileus: Plan: 86-year-old male with ileus after fall. CT yesterday with no obstruction and is having multiple liquid stools. Incidental finding of bilateral iliopsoas hematomas, likely secondary to recent fall and therapeutic anticoagulation. Anticoagulation held, hemoglobin stable. No evidence of obstruction, diet as tolerated Hold therapeutic anticoagulation, hemoglobin stable Consider discussion with vascular for IVC filter versus restarting anticoagulation in the setting of iliopsoas hematoma Surgery will follow peripherally, call with questions or concerns (2) Hematoma of psoas region due to anticoagulant therapy: Admission and Anticipated Discharge Date Admission Date: June 22, 2021 Subjective 86-year-old male with ileus versus partial small bowel traction. He continues to have multiple loose bowel movements. A CT scan was performed without oral contrast yesterday and showed no evidence of obstruction and liquid in the colon. It also revealed iliopsoas hematoma. He is on anticoagulation due to new left lower extremity DVT. Patient demented, without complaints Physical Exam Constitutional: WD/WN, vitals as above Gastrointestinal (Abdomen): normal bowel sounds, soft, nontender, no hepatosplenomegaly Inspection/Auscultation: + abdomen distended (Less distended) Results & Data ([facility]) Vital Signs (Past 12 Hours) Vital Signs Temp Pulse Resp BP Pulse Ox 06/28/21 06:38 36.9 C 81 19 142/86 H 94 Laboratory Results Laboratory Results - last 24 hr 06/27/21 06/28/21 06/28/21 10:56 05:55 05:55 WBC 10.58 10.26 RBC 3.28 L 3.08 L Hgb 10.3 L 9.6 L Hct 31.4 L 29.6 L MCV 95.7 96.1 MCH 31.4 31.2 MCHC 32.8 32.4 RDW Std Deviation 47.3 H 48.3 H RDW Coeff of Mohit 13.6 14.0 Plt Count 259 289 MPV 10.6 H 10.2 Absolute Nucleated RBC 0.03 H Nucleated RBC % (auto) 0.3 Sodium 147 H Potassium 3.1 L Chloride 114 H Carbon Dioxide 29 Anion Gap 5.0 BUN 23 H Creatinine 0.62 Est Cr Clr Drug Dosing 91.5 Est GFR ( Amer) 104.8 Est GFR (Non-Af Amer) 90.5 BUN/Creatinine Ratio 36.4 H Glucose 133 H Calcium 8.0 L PG Care Time/CCT Total # of Minutes Spent Total Time Spent with Patient: Total time spent is greater than 50% in coordination of care (as documented) at patient's floor/unit and/or counseling patient: Coding Level of Care Code 17712 Inpt Consult Level 2 Diagnoses Hematoma of psoas region due to anticoagulant therapy S30.1XXA; T45.515A Ileus K56.7
--- NOTE | 2021-06-28 20:03 | Hospitalist Progress Note ---
Date of Service June 28, 2021 Assessment & Plan (1) AMS (altered mental status): (2) DVT (deep venous thrombosis): (3) Fall: (4) Cellulitis: (5) Abrasion: (6) BPH loc w urin obs/LUTS: (7) HTN (hypertension): (8) Dementia: (9) Total bilirubin, elevated: (10) Rhabdomyolysis: Plan: AMS/Fall Patient seen in ED on 06/21 for altered mental status and fall. Patient was diagnosed with bilateral lower extremity cellulitis and discharged home on cep halexin. Per admitting note: Per nurse at assisted living pt was started on Haloperidol 2.5mg qhs 3 weeks ago for agitation and combativeness. He is also taking quetiapine 50mg BID prn and lorazepam 0.5mg qhs prn. Head CT negative for acute findings. Haldol, quetiapine, lorazepam all on hold. Consider resuming quetiapine tomorrow. AMS possibly secondary to polypharmacy vs. metabolic encephalopathy from infection (cellulitis, possible bacteremia) Positive blood cultures 1/2 blood cultures from 06/21 growing coag negative staph, not lugdunensis ? Contaminant On IV ceftriaxone Repeat blood cultures NGTD 48hrs Patient remains afebrile Ileus pt c/o abd pain, + loose large Bm 06/24 KUB: Ileus, repeat KUB unchaged on 06/25 downgrade diet to clears, avoid pain meds NSS 80cc/hr hold lasix for now, re assess daily when to resume he is on bowel regimen C. difficile is negative negative 06/27 CT abdomen pelvis with IV contrast only [patient could not cooperate with oral contrast]: No obstruction and is having multiple liquid stool. Incidental finding of bilateral iliopsoas hematoma. Surgery on board, recommending conservative management Iliopsoas hematoma Incidental finding on 06/27 CT abdomen pelvis done for ileus Bilateral, likely secondary to recent fall and therapeutic anticoagulation for LLE DVT Surgery on board, recommending vascular surgery consult for IVC filter placement Continue to monitor vitals and hemoglobin daily Discussed with his family [ and his youngest son Amador], they are leaning more towards comfort than active interventions, wanted to discuss with palliative care. Hypokalemia Monitor replete. LLE DVT: Very likely provoked, per nurse due to haloperidol pt has been mostly sleeping Patient on therapeutic dose Lovenox Therapeutic Lovenox has been on hold due to retroperitoneal hematoma,? Vascular consult for IVC filter placement. B/L LE cellulitis: Patient with history of chronic lower extremity swelling and lymphedema lower extremities with chronic changes On IV ceftriaxone - will complete course and d/c, erythema has resolved, residual is likely chronic venous stasis change Elevated Tbili: US abd unremarkable Resolved HTN BP controlled, continue lisinopril, lasix on hold DVT prophylaxis - on therapeutic dose Lovenox Dispo - Pending. Not medically stable in setting of ileus and retroperitoneal hematoma, palliative care eval pending, likely discharge back to [facility] once medically stable. PT/OT. 06/28: Talked with his over the phone, who will be faxing his living will to the hospital, updated in his current status and possible need for transfer to [place] if retroperitoneal hematoma worsens, his [place] leaning towards more comfort than active interventions. Also talked with his youngest son Amador ([phone]) who is local here and had the similar discussion above. Admission and Anticipated Discharge Date Admission Date: June 22, 2021 Subjective Patient seen and examined at the bedside, confused and mumbling, difficult to understand, ROS not available due to cognition status. Per RN patient is incontinent of bowel and bladder. Patient is not able to cooperate with medications and food. Physical Exam Physical Exam: GENERAL: Confused. NAD, on RA. Confused, demented, not able to cooperate with examination. HEENT: No pallor, no icterus. Pupils equal, round and reactive to light. Oral mucosa moist. NECK: No JVD, no neck masses. HEART: S1 and S2 heard. Regular rate and rhythm. No murmur, no gallop. RESPIRATORY SYSTEM: Normal AP diameter. No accessory muscle use. No wheezing, no crackles. ABDOMEN: Soft, bowel sounds decreased, tense but nontender, no distention. CENTRAL NERVOUS SYSTEM: No facial droop. N/A due to cognition status. EXTREMITIES: No edema, BLE chronic skin changes. Results & Data Results & Data ([facility]) Vital Signs (Past 12 Hours) Vital Signs Temp Pulse Resp BP Pulse Ox 06/28/21 15:48 36.6 C 81 18 149/71 H 97 (1) Cellulitis Laterality: unspecified laterality Site of cellulitis: extremity Site of cellulitis of extremity: lower extremity Qualified Code(s): L03.119 - Cellulitis of unspecified part of limb (2) Dementia Dementia behavioral disturbance: with behavioral disturbance Dementia type: vascular dementia Qualified Code(s): F01.51 - Vascular dementia with behavioral disturbance
[2021-06-28] MEDS: POTASSIUM CHLORIDE / WTR 10 MEQ/100 ML PLCT IV SCH ×2 (20:56→23:12)
[2021-06-29] MEDS: POTASSIUM CHLORIDE / WTR 10 MEQ/100 ML PLCT IV SCH ×2 (00:23→02:47)
[2021-06-29 08:07] LABS: Hematocrit (blood only) 30.1 % (42-52); Hemoglobin 9.7 g/dL (14.0-18.0); Mean Corpuscular Hemoglobin 31.3 pg (25-34); Mean Corpuscular Hgb Conc 32.2 g/dL (32-36); Mean Corpuscular Volume 97.1 fL (80-100); Mean Platelet Volume 10.7 fL (7.4-10.4); Nucleated RBC # (auto) 0.04 K/uL (0-0); Nucleated RBC % (auto) 0.4 %; Platelet Count 305 K/uL (130-400); RDW Coefficient of Variation 14.1 % (11.5-14.5); RDW Standard Deviation 49.8 fL (36.4-46.3); White Blood Count 11.09 K/uL (4.8-10.8)
[2021-06-29 09:09] LABS: BUN Creatinine Ratio 30.7 (10-20); Calcium 8.2 mg/dl (8.5-10.1); Creatinine Clr Calc Pharmacy 84.6 ml/min; Est GFR (African American) 101.5 ml/min; Est GFR (Non-African American) 87.6 ml/min; Potassium 3.2 mmol/L (3.5-5.1)
[2021-06-29] MEDS: PANTOprazole 40 MG TAB PO SCH (09:18)
[2021-06-29] MEDS: DOCUSATE SODIUM 100 MG CAP PO SCH (09:18)
[2021-06-29] MEDS: SACCHAROMYCES BOULARDII 250 MG CAP PO SCH (09:18)
[2021-06-29] MEDS: ZINC SULFATE 220 MG CAPSULE PO SCH (09:18)
[2021-06-29] MEDS: TAMSULOSIN HCL 0.4 MG CAP PO SCH (09:18)
[2021-06-29] MEDS: lisinopril 20 MG TAB PO SCH (09:18)
[2021-06-29] MEDS: bisacodyL 10 MG SUPP PR SCH (09:19)
[2021-06-29] MEDS: ATORVASTATIN 20 MG TAB PO SCH (09:19)
[2021-06-29] MEDS: CYANOCOBALAMIN 500 MCG TABLET (VITAMIN B-12) PO SCH (09:19)
[2021-06-29] MEDS: POLYETHYLENE (MIRALAX) 17 GM PACK PO SCH (09:20)
[2021-06-29] MEDS: cefTRIAXone SODIUM 2,000 MG in DEXTROSE 5% 50 ML IV SCH (09:20)
[2021-06-29] MEDS: D5W AND 1/2NSS 1,000 ML IV SCH (09:35)
--- NOTE | 2021-06-29 10:05 | Palliative Care Consultation ---
Date of Consultation June 29, 2021 Assessment & Plan (1) Palliative care encounter: Mr. Ivory is an 86 year old gentleman who presented to the [facility] from [facility] after experiencing altered mental status s/p fall. Additional PMH includes: ileus, HTN, vascular dementia, OA, HLD, GERD and iliopsoas hematoma. There was conversation regarding how aggressive to be with regards to his care, specifically the hematoma. There was some conversation regarding transfer for an upgrade in care versus a transition to a more conservative approach. Palliative Medicine was consulted to discuss overall goals of care. I was able to talk to the patients son, Amador at [phone]. He stated that he is the youngest son and Garth has the POA. Amador is the youngest but he is the only local one here. He stated that he has been declining over the past few weeks and months with his functional ability. He said that his ability to talk has worsened as well. He would like to see him return to [facility] and then transition to hospice if he worsens further. He favors him to stay at [facility] and avoid future hospitalizations unless cleared by family. I then called out to Garth at [phone] and talked to him at length. He does not feel a transfer to another hospital for aggressive care. He would like to shift focus to a more conservative approach. He was thinking about a time they were hunting and he always made comments about not wanting to see any animals suffering and he would want to approach his care related to that conversation. He would like to optimize his care here, with then transitioning back to [facility] with Hospice. He wants to avoid any future hospitalizations unless cleared by family. He certainly would qualify for Hospice with a FAST score of All of 6 and up to 7B. 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 Case management to follow up directly with the family. Hospitalist aware of above and below. (2) POLST (Physician Orders for Life-Sustaining Treatment): A POLST has been completed over the phone with Garth indicating the following: DNR/DNI, CRIMINAL INVESTIGATOR, trial abx, and no artificial nutrition/hydration. Copy and original placed on chart. Original to return to [facility] with patient. (3) AMS (altered mental status): (4) Dementia: Dementia behavioral disturbance: with behavioral disturbance Dementia type: vascular dementia Qualified Code(s): F01.51 - Vascular dementia with behavioral disturbance History of Present Illness Reason for Consultation: goals of care Requesting Physician: Dr. Garcia Attending Physician: Taryn Garcia MD History of Present Illness Mr. Ivory is an 86 year old gentleman who presented to the [facility] from [facility] after experiencing altered mental status s/p fall. Additional PMH includes: ileus, HTN, vascular dementia, OA, HLD, GERD and iliopsoas hematoma. There was conversation regarding how aggressive to be with regards to his care, specifically the hematoma. There was some conversation regarding transfer for an upgrade in care versus a transition to a more conservative approach. Palliative Medicine was consulted to discuss overall goals of care. Please see A/P for further details. Thanks for involving palliative medicine with this patient. Allergies Allergy/AdvReac Type Severity Reaction Status Date / Time No Known Allergies Allergy Mild Verified 05/17/21 17:19 Home Medications Medication Instructions Recorded Confirmed Type atorvastatin 20 mg tablet 20 mg PO QAM 11/27/19 06/22/21 History lisinopril 20 mg tablet 20 mg PO QAM 11/27/19 06/22/21 History tamsulosin 0.4 mg capsule 0.4 mg PO QAM 11/27/19 06/22/21 History acetaminophen 325 mg tablet 650 mg PO Q6 PRN MDD 3g 10/20/20 06/22/21 History cholecalciferol (vitamin D3) 25 25 mcg PO 3XWK 10/20/20 06/22/21 History mcg (1,000 unit) capsule (Vitamin D3) cyanocobalamin (vitamin B-12) 1,000 mcg PO QAM 10/20/20 06/22/21 History 1,000 mcg tablet (Vitamin B-12) furosemide 40 mg tablet 40 mg PO QAM 10/20/20 06/22/21 History lorazepam 0.5 mg tablet 0.5 mg PO DAILY PRN 10/20/20 06/22/21 History quetiapine 50 mg tablet 50 mg PO BID PRN 10/20/20 06/22/21 History vitamin A 10,000 unit capsule 10,000 unit PO QAM 10/20/20 06/22/21 History polyethylene glycol 3350 17 gram 17 g PO DAILY 03/18/21 06/22/21 History oral powder packet (Miralax) Triam 0.1%Cr/Lubriderm Lo 1 applic TOPICAL BID 05/17/21 06/22/21 History zinc sulfate 220 mg capsule 220 mg PO QAM 05/17/21 06/22/21 History cephalexin 500 mg capsule 500 mg PO Q6H 7 Days #28 cap 06/21/21 06/22/21 Rx docusate sodium 100 mg capsule 100 mg PO BID 06/21/21 06/22/21 History (Colace) haloperidol 0.5 mg tablet 0.5 mg PO DAILY 06/21/21 06/22/21 History haloperidol 2 mg tablet 2 mg PO DAILY 06/21/21 06/22/21 History Patient History Medical History (Updated 06/29/21 @ 10:20 by SUJEY Ovalles) Diverticulitis Hematoma of psoas region due to anticoagulant therapy Hypertensive kidney disease Palliative care encounter POLST (Physician Orders for Life-Sustaining Treatment) Rhinitis Surgical History History of appendectomy S/P colon resection Social History Smoking Status: Unknown if ever smoked Second Hand Exposure: No; Do You Dip or Chew Tobacco: No; Tobacco Cessation Education Requested by Patient: No Hx Alcohol Use: No Hx Substance Use: No Preferred Language: Rwandan Communication Ability: Effective Communication Ability Comment: patient confused, follows some commands Head Piece Assembler Required: No Beliefs That Will Affect Care: None Current Living Situation: Personal Care Facility Feels Safe at Home: Yes Assistive Devices: Glasses Assistive Devices Comment: patient cognitively impaired, unable to verbalize Review of Systems Review of Systems: Unobtainable due to cognitive status Physical Exam Constitutional: + frail appearing, + disheveled and comfortable ENMT: Mouth: + dry oral mucous membranes Respiratory: normal respiratory effort and + cough Cardiovascular: Rate/Rhythm: regular rate and regular rhythm Extremities: normal capillary refill Gastrointestinal (Abdomen): Inspection/Auscultation: abdomen normal to inspection Skin: normal turgor Psychiatric: Orientation: alert and oriented to person Results & Data ([facility]) Vital Signs (Past 12 Hours) Vital Signs Temp Pulse Resp BP BP Pulse Ox 06/29/21 07:51 37 C 87 20 154/76 H 94 12/20/21 22:41 37.2 C 95 H 20 155/68 H 93 PG Care Time/CCT Total # of Minutes Spent Total Time Spent with Patient: Total time spent is greater than 50% in coordination of care (as documented) at patient's floor/unit and/or counseling patient: 70 minutes Coding Level of Care Code 74862 Initial Inpt Care Lvl 3 Diagnoses Palliative care encounter Z51.5 AMS (altered mental status) R41.82 Dementia F01.51 Dementia behavioral disturbance: with behavioral disturbance Dementia type: vascular dementia POLST (Physician Orders for Life-Sustaining Treatment) Z78.9 Time Spent (min) 70
--- NOTE | 2021-06-29 10:51 | Hospitalist Progress Note ---
Date of Service June 29, 2021 Assessment & Plan (1) AMS (altered mental status): (2) DVT (deep venous thrombosis): (3) Fall: (4) Cellulitis: (5) Abrasion: (6) BPH loc w urin obs/LUTS: (7) HTN (hypertension): (8) Dementia: (9) Total bilirubin, elevated: (10) Rhabdomyolysis: Plan: AMS/Fall Patient seen in ED on 06/21 for altered mental status and fall. Patient was diagnosed with bilateral lower extremity cellulitis and discharged home on cep halexin. Per admitting note: Per nurse at assisted living pt was started on Haloperidol 2.5mg qhs 3 weeks ago for agitation and combativeness. He is also taking quetiapine 50mg BID prn and lorazepam 0.5mg qhs prn. Head CT negative for acute findings. Haldol, quetiapine, lorazepam all on hold. AMS possibly secondary to polypharmacy vs. metabolic encephalopathy from infection (cellulitis, possible bacteremia) Pt remains confused but pleasant, no need for haldol or antipsychotics at this time Positive blood cultures 1/2 blood cultures from 06/21 growing coag negative staph, not lugdunensis ? Contaminant On IV ceftriaxone Repeat blood cultures NGTD 48hrs Patient remains afebrile Ileus pt c/o abd pain, + loose large Bm 06/24 KUB: Ileus, repeat KUB unchaged on 06/25 downgrade diet to clears, avoid pain meds hold lasix for now, re assess daily when to resume he is on bowel regimen, will decrease to once daily given liquid bms C. difficile is negative negative 06/27 CT abdomen pelvis with IV contrast only [patient could not cooperate with oral contrast]: No obstruction and is having multiple liquid stool. Incidental finding of bilateral iliopsoas hematoma. Surgery on board, recommending conservative management Iliopsoas hematoma Incidental finding on 06/27 CT abdomen pelvis done for ileus Bilateral, likely secondary to recent fall and therapeutic anticoagulation for LLE DVT Surgery on board, recommending vascular surgery consult for IVC filter placement Continue to monitor vitals and hemoglobin daily Discussed with his family [ and his youngest son Amador], they are leaning more towards comfort than active interventions Palliative consult was placed - appreciate their input POA wishes for no aggressive measures, transfers or procedures at this time. POLST filled out. Plan is to transition pt to hospice services at [facility]. no further tx for dvt in setting of hematoma, hgb stable 9.7 monitor Hypokalemia replete LLE DVT: Very likely provoked, per nurse due to haloperidol pt has been mostly sleeping Patient on therapeutic dose Lovenox - now stopped due to b/ l iliopsoas hematoma Plan to transition to hospice - no further tx, goal is comfort B/L LE cellulitis: Patient with history of chronic lower extremity swelling and lymphedema lower extremities with chronic changes On IV ceftriaxone to complete tomorrow - will complete course and d/c, erythema has resolved, residual is likely chronic venous stasis change Aspiration precautions speech consulted - pt exhibiting signs/sx of dysphagia VFSS ordered - no evidence of dysphagia; however limited study due to pt dementia ST still recommending asp precautions, pureed diet with allowance for regular/soft textured snacks if desired with supervision for quality of life Elevated Tbili: US abd unremarkable Resolved HTN BP controlled, continue lisinopril, lasix on hold DVT prophylaxis - none in setting of hematoma, dvt DISPO: plan to d/c back to [facility] with hospice services Per Dr. Garcia discussion with family on 06/28: Talked with his Son's (Garth's) over the phone, who will be faxing his living will to the hospital, updated in his current status and possible need for transfer to [place] if retroperitoneal hematoma worsens, Garth's Kezia leaning towards more comfort than active interventions. Also talked with his youngest son Amador ([phone]) who is local here and had the similar discussion above. Admission and Anticipated Discharge Date Admission Date: June 22, 2021 Supervising Physician Co-Signing Physician Notes 86-year-old gentleman who was admitted for recurrent falls and AMS coming from [facility] [where he has been living since 1 and half years] was found to have rhabdomyolysis which was resolved, also found to have LLE DVT and was started on therapeutic Lovenox. Patient was also found to have an ileus, did not cooperate with oral contrast, and hence CTAP with IV contrast was done which revealed no obstruction but there was incidental finding of iliopsoas hematoma likely secondary to recent falls and use of therapeutic Lovenox. Hence Lovenox was stopped. Patient hemodynamically stable. Patient not cooperating with p.o. intake. Palliative care discussion with the family---> no transfer to tertiary center for acute intervention/they want to shift focus to a more conservative approach, leaning towards HOUSE ADMIN, no artificial nutrition/hydration. Family would like to optimize his care here and then transition him back to [facility] with hospice. Subjective Patient was seen and examined in room 383-2. Follow-up altered mental status, ileus, DVT, iliopsoas hematoma Patient unable provide meaningful history given dementia hx. States, "good morning." He denies pain, chest pain, sob, n/v/d. Having liquid BMs per nursing. Review of Systems Review of Systems: All systems reviewed & are unremarkable except as noted in HPI & below and Unobtainable due to cognitive status Physical Exam Physical Exam: Gen: resting comfortably in bed, NAD, WD/WN, confused HEENT: Normocephalic, atraumatic, conjunctivae moist, sclerae anicteric, mucous membranes dry Lung: Clear to Auscultation bilaterally, no wheezes/rales/rhonchi Heart: Regular rate, regular rhythm, no murmurs, rubs, or gallops Abdomen: soft, NT, ND, +BS Extremities: No edema, venous stasis b/l no warmth Skin: Warm, no rash, negative turgor. Results & Data Results & Data ([facility]) Vital Signs (Past 12 Hours) Vital Signs Temp Pulse Resp BP Pulse Ox 06/29/21 07:51 37 C 87 20 154/76 H 94 (1) Cellulitis Laterality: unspecified laterality Site of cellulitis: extremity Site of cellulitis of extremity: lower extremity Qualified Code(s): L03.119 - Cellulitis of unspecified part of limb (2) Dementia Dementia behavioral disturbance: with behavioral disturbance Dementia type: vascular dementia Qualified Code(s): F01.51 - Vascular dementia with behavioral disturbance
[2021-06-29] MEDS ORDERED: POTASSIUM CHLORIDE CRTAB 20 MEQ TABCR PO STA (11:03)
[2021-06-30 08:42] LABS: Hematocrit (blood only) 29.3 % (42-52); Hemoglobin 9.4 g/dL (14.0-18.0); Mean Corpuscular Hemoglobin 31.5 pg (25-34); Mean Corpuscular Hgb Conc 32.1 g/dL (32-36); Mean Corpuscular Volume 98.3 fL (80-100); Mean Platelet Volume 10.4 fL (7.4-10.4); Nucleated RBC # (auto) 0.03 K/uL (0-0); Nucleated RBC % (auto) 0.3 %; Platelet Count 284 K/uL (130-400); RDW Coefficient of Variation 14.1 % (11.5-14.5); Red Blood Count 2.98 M/uL (4.7-6.1)
[2021-06-30] MEDS: ATORVASTATIN 20 MG TAB PO SCH (08:50)
[2021-06-30] MEDS: CHOLECALCIFEROL 1,000 UNITS 25 MCG TAB PO SCH ×2 (08:50→11:42)
[2021-06-30] MEDS: PANTOprazole 40 MG TAB PO SCH (08:51)
[2021-06-30] MEDS: POLYETHYLENE (MIRALAX) 17 GM PACK PO SCH (08:51)
[2021-06-30] MEDS: TAMSULOSIN HCL 0.4 MG CAP PO SCH (08:53)
[2021-06-30] MEDS: SACCHAROMYCES BOULARDII 250 MG CAP PO SCH ×2 (08:53→11:42)
[2021-06-30] MEDS: ZINC SULFATE 220 MG CAPSULE PO SCH ×2 (08:53→11:42)
[2021-06-30] MEDS: lisinopril 20 MG TAB PO SCH (08:54)
[2021-06-30 09:06] LABS: Est GFR (Non-African American) 95.7 ml/min; Potassium 3.3 mmol/L (3.5-5.1)
[2021-06-30] MEDS ORDERED: BENZOCAINE 20% (ORAJEL) 11.9 GM TUBE MT SCH (11:00)
[2021-06-30] MEDS: bisacodyL 10 MG SUPP PR SCH (11:06)
[2021-06-30] MEDS: CYANOCOBALAMIN 500 MCG TABLET (VITAMIN B-12) PO SCH (11:42)
[2021-07-01] MEDS ORDERED: DOCUSATE SODIUM 100 MG CAP PO SCH (09:00)
--- NOTE | 2021-07-16 07:21 | Discharge Summary ---
Date of Service July 16, 2021 Admission HPI Per Admitting Provider Pt is a 86 y/o M with hx of HTN, HLD, Dementia, hx of Diverticulitis, hx of colon resection, CKD III, BPH, Insomnia, b/l LE lymphedema, AVM of colon brought in from Assisted living ([facility]) after a fall and AMS. Pt was seen in the ER yesterday for fall and AMS. He was dx with b/l LE cellulitis and discharged home. Today at bedside: pt complained of abd pain (diffuse) otherwise denied any CP, SOB, N/V or Headache. Had to repeat the questions multiple times during the history taking and due to AMS history is limited Spoke to MARY Hay at [facility]: pt was started on Haloperidol 2.5mg qhs 3 weeks ago for agitation Admission Exam (Per Admitting) Constitutional Physical Exam: General:.NAD, well developed, well nourished HEENT:.superficial skin tear near the occipital scalp area,Normocephalic, Normal Conjunctiva, EOMI, Sclera is non-icteric Lungs:.No signs of respiratory distress, CTA, no wheezing or crackles Heart:.Normal S1, S2, no murmur Abdominal:.Mild TTP of the LUQ, RUQ and epigastric area,ND, Soft MSK:b/l mild pitting edema of LE, with erythema (no streaking), L leg appeared more swollen than R leg, able to move both UE and LE equally Psych:.AAOx1, unable to recall date, and place Resul Discharge Data Consultations 06/22/21 13:58 ED Decision to Admit Stat 06/25/21 10:37 Consult General Surgery Routine 06/28/21 13:55 Consult Palliative Care Routine Hospital Course (1) AMS (altered mental status): (2) DVT (deep venous thrombosis): (3) Fall: (4) Cellulitis: (5) Abrasion: (6) BPH loc w urin obs/LUTS: (7) HTN (hypertension): (8) Dementia: (9) Total bilirubin, elevated: (10) Rhabdomyolysis: per HEATH Elmira Kaplan'angelique notes with addendum: AMS/Fall Patient seen in ED on 06/21 for altered mental status and fall. Patient was diagnosed with bilateral lower extremity cellulitis and discharged home on cephalexin. Per admitting note: Per nurse at assisted living pt was started on Haloperidol 2.5mg qhs 3 weeks ago for agitation and combativeness. He is also taking quetiapine 50mg BID prn and lorazepam 0.5mg qhs prn. Head CT negative for acute findings. Haldol, quetiapine, lorazepam all on hold. AMS possibly secondary to polypharmacy vs. metabolic encephalopathy from infection (cellulitis, possible bacteremia) 06/30 patient pleasantly confused Positive blood cultures /2 blood cultures from 06/21 growing coag negative staph, not lugdunensis ? Contaminant given IV ceftriaxone Repeat blood cultures NGTD 48hrs remains afebrile Ileus pt c/o abd pain, + loose large Bm 06/24 KUB: Ileus, repeat KUB unchaged on 06/25 06/27 CT abdomen pelvis with IV contrast only [patient could not cooperate with oral contrast]: No obstruction and is having multiple liquid stool. Incidental finding of bilateral iliopsoas hematoma. Surgery recommending conservative management Iliopsoas hematoma Incidental finding on 06/27 CT abdomen pelvis done for ileus Bilateral, likely secondary to recent fall and therapeutic anticoagulation for LLE DVT Surgery on board, recommending vascular surgery consult for IVC filter placement Discussed with his family [ and his youngest son Amador], they are leaning more towards comfort than active interventions Palliative consult was placed - appreciate their input POA wishes for no aggressive measures, transfers or procedures at this time. POLST filled out. Plan is to transition pt to hospice services at [facility]. no further tx for dvt in setting of hematoma, hgb stable 9.7 LLE DVT: Very likely provoked, per nurse due to haloperidol pt has been mostly sleeping Patient on therapeutic dose Lovenox - now stopped due to b/ l iliopsoas hematoma B/L LE cellulitis: Patient with history of chronic lower extremity swelling and lymphedema lower extremities with chronic changes given IV Ceftriaxone Aspiration precautions speech consulted - pt exhibiting signs/sx of dysphagia VFSS ordered - no evidence of dysphagia; however limited study due to pt dementia ST still recommending asp precautions, pureed diet with allowance for regular/soft textured snacks if desired with supervision for quality of life HTN BP controlled, continue lisinopril, lasix on hold DVT prophylaxis - none in setting of hematoma, dvt DISPO: plan to d/c back to [facility] with hospice services
== END 2021-06-30 14:40 | disposition hospice, inpatient (51) | DRG 299 ==
LOC: ED 08:11 → EDINP 14:33 → SUATTDRO 14:33 → 3N 18:24